=== PATIENT | female | born 1965 | race Caucasian/White ===

== ENCOUNTER 2017-06-21 10:31 | Inpatient (IN) | payer OTHER, MEDICARE ==
[~2017-06-21] VITALS: Ht 165.1 cm; Wt 98.0 kg
[~2017-06-21 10:31] MED LIST: BACLOFEN10 M1 PO; BACLOFEN20 MG PO; COZAAR50 M1 PO; CYMBALTA60 M1 PO; FLUTICASON0.05 MG/A2 NAS; FUROSEMIDE20 M1 PO; FUROSEMIDE20 MG PO; FUROSEMIDE40 MG PO; IBU800 MG PO; K-TAB ER20 MEQ PO; LASIX20 MG PO; NORVASC5 M1 PO; ONDANSETRON ODT4 MG PO; SENOKOT NATURA8.6 MG PO; TESSALON PERLE100 MG PO; TRAZODONE HCL100 M1 PO; TRAZODONE50 MG PO; VITAMIN C500 M3 PO; VITAMIN D2400 IU PO; ZANAFLEX4 M2 PO
--- NOTE | 2017-06-21 10:50 | ED GI/GU/ABDOMINAL COMPLAINT ---
See Addendum History of Present Illness General Chief Complaint: Nausea, Vomiting, Diarrhea Stated Complaint: BIBA NVD Source: old records, EMS, [employer] Exam Limitations: clinical condition Vital Signs & Intake/Output Vital Signs & Intake/Output Vital Signs Date Time Temp Pulse Resp B/P B/P Pulse O2 O2 Flow FiO2 Mean Ox Delivery Rate 06/21 1042 96.0 115 24 108/67 95 Allergies Coded Allergies: NO KNOWN ALLERGIES (10/21/11) Reconcile Medications Amlodipine Besylate (Norvasc) 5 MG TABLET 1 TAB PO DAILY HEART (Reported) Ascorbate Calcium (Vitamin C) 500 MG TABLET 1 TAB PO DAILY VITAMIN SUPPORT ( Reported) Baclofen 10 MG TABLET 1 TAB PO BID SPASM (Reported) Cholecalciferol (Vitamin D3) (Vitamin D3) 2,000 UNIT TABLET 1 TAB PO DAILY VITAMIN SUPPORT (Reported) Cranberry Extract (Cranberry) (Unknown Strength) CAPSULE (Unknown Dose) PO BID SUPPLEMENT (Reported) Duloxetine HCl (Cymbalta) 60 MG CAPSULE.DR 1 CAP PO DAILY DEPRESSION ( Reported) Furosemide 20 MG TABLET 1 TAB PO DAILY EDEMA (Reported) Losartan Potassium (Cozaar) 50 MG TABLET 1 TAB PO DAILY HEART (Reported) Multivitamin (Daily Multiple Vitamin) 1 EACH TABLET 1 TAB PO DAILY VITAMIN SUPPORT (Reported) Potassium Chloride (K-Tab ER) 20 MEQ TABLET.ER 1 TAB PO DAILY SUPPLEMENT ( Reported) Sennosides (Senokot) 8.6 MG TABLET 1 TAB PO QPM CONSTIPATION (Reported) Tizanidine HCl (Zanaflex) 4 MG CAPSULE 1 CAP PO BID SPASMS (Reported) Trazodone HCl 100 MG TABLET 1 TAB PO QPM SLEEP (Reported) Triage Note: PER RETIREMENT PT VOMITTED X 4 SINCE 529, UPON ARRIVAL CO MID ABD PAIN APPEARS WELL HYDRATED ABD SOFT NONDISTENDED + BS Triage Nurses Notes Reviewed? yes ? N Is pt currently ? No Onset: Abrupt Duration: hour(s): (FEW) Timing: multiple episodes today Location: unknown Activities at Onset: none Prior Abdominal Problems: similar symptoms No Modifying Factors: none HPI: This is a 51-year-old female with history of muscular dystrophy from snf who presents from the snf by Ryann Go chief complaint of multiple episodes of vomiting and diarrhea today. 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 She is in the process of being cleared for surgery with Dr. Fried. He shouldn't is normally able to communicate but currently not acting herself. (Ann Marie Arenas MD) Past History Travel History Traveled to [place] past 21 day No Medical History Any Pertinent Medical History? see below for history Neurological: MUSCULAR DYSTROPHY EENT: NONE Cardiovascular: NONE Respiratory: NONE Gastrointestinal: NONE Hepatic: NONE Renal: KIDNEY STONES Musculoskeletal: NONE Psychiatric: NONE Endocrine: NONE Blood Disorders: NONE Cancer(s): NONE FLAGMAN/Reproductive: NONE Other Medical Hx: MUSCULAR DYSTROPHY History of MRSA: No History of VRE: No History of CDIFF: No Surgical History Surgical History: non-contributory Psychosocial History Who do you live with [facility] What is your primary language Turkish Tobacco Use: Never used Family History Hx Contributory? No (Ann Marie Arenas MD) Review of Systems Review of Systems Constitutional: Denies: chills, fever. EENTM: Reports: no symptoms. Respiratory: Reports: no symptoms. Cardiovascular: Denies: chest pain. GI: Reports: diarrhea, nausea, vomiting. Genitourinary: Reports: no symptoms. Musculoskeletal: Reports: no symptoms. Skin: Reports: no symptoms. Neurological/Psychological: Reports: no symptoms. Hematologic/Endocrine: Denies: bleeding. Immunologic/Allergic: Reports: no symptoms. All Other Systems: Reviewed and Negative (Ann Marie Arenas MD) Physical Exam Physical Exam General Appearance: alert, awake, moderate distress, severe distress Head: atraumatic Eyes: Bilateral: PERRL. Ears, Nose, Throat, Mouth: DRY MUCUS MEMBRANES Neck: normal inspection, supple, full range of motion Respiratory: normal breath sounds, chest non-tender, no respiratory distress Cardiovascular: regular rate/rhythm Peripheral Pulses: 1+ radial (R), 1+ radial (L) Gastrointestinal: normal bowel sounds, soft, non-tender Extremities: COOL EXTREMITIES Neurologic/Psych: awake, alert Core Measures ACS in differential dx? Yes Sepsis Present: No Sepsis Focused Exam Completed? No (Ann Marie Arenas MD) Progress Differential Diagnosis: biliary colic, cholecystitis, EDDI, DEHYDRATION, GASTROENTERITIS Plan of Care: Orders Procedure Date/time Status LACTIC ACID 06/21 1401 Active LACTIC ACID 06/21 1400 Active BLOOD CULTURE 06/[address] ABD & PELVIS W IV CONTRAST 06/21 1326 Active CTA CHEST-PULMONARY EMBOLISM 06/21 1325 Active EKG 06/21 1257 Active Vargas, Insertion/Removal/Asses 06/21 1239 Active CULTURE,URINE 06/21 1239 Active Add-on Test (ER Only) 06/21 1237 Active Add-on Test (ER Only) 06/21 1236 Active Straight Cath 06/21 1158 Active THYROID STIMULATING HORMONE 06/21 1126 Complete TROPONIN LEVEL 06/21 1126 Complete MAGNESIUM 06/21 1126 Complete FREE T4 06/21 1126 Complete LACTIC ACID 06/21 1101 Complete LACTIC ACID 06/21 1100 Active PARTIAL THROMBOPLASTIN TIME 06/21 1044 Complete PROTHROMBIN TIME 06/21 1044 Complete EKG 06/21 1044 Active URINE 06/21 1043 Complete URINALYSIS 06/21 1043 Complete LIPASE 06/21 1043 Complete COMPREHENSIVE METABOLIC PANEL 06/21 1043 Complete CBC WITHOUT DIFFERENTIAL 06/21 1043 Complete AMYLASE 06/21 1043 Complete Laboratory Tests 06/21/17 1251: Urine Color YEL, Urine Clarity CLDY H, Urine pH 5.5, Ur Specific [place] >= 1.030, Urine Protein 30 H, Urine Ketones 40 H, Urine Nitrite POS H, Urine Bilirubin NEG, Urine Urobilinogen 0.2, Ur Leukocyte Esterase SMALL H, Ur Microscopic SEDIMENT EXAMINED, Urine RBC 1-3, Urine WBC 25-50 H, Ur Epithelial Cells FEW, Urine Bacteria MANY H, Urine Hemoglobin TRACE-INTACT, Urine Glucose NEG, Urine Test NEGATIVE 06/21/17 1126: Anion Gap 17 H, Estimated GFR > 60, BUN/Creatinine Ratio 30.0 H, Glucose 168 H, Calcium 9.4, Magnesium 1.9, Total Bilirubin 0.7, AST 86 H, ALT 213 H, Alkaline Phosphatase 113, Troponin I 0.52 *H, Total Protein 7.1, Albumin 4.1, Globulin 3.0, Albumin/Globulin Ratio 1.4, Amylase 79, Lipase 151, TSH 0.475, Free T4 1.49, PT 11.7, INR 1.07, APTT 34, CBC w Diff MAN DIFF ORDERED, RBC 5.29, MCV 88.5, MCH 30.3, MCHC 34.2, RDW 12.8, MPV 10.4, Gran % 93.3 H, Lymphocytes % 4.7 L, Monocytes % 1.7, Eosinophils % 0, Basophils % 0.3, Absolute Granulocytes 11.1 H, Absolute Lymphocytes 0.6 L, Absolute Monocytes 0.2, Absolute Eosinophils 0, Absolute Basophils 0, Platelet Estimate ADEQUATE, Normocytic RBCs VERIFIED, Normochromic RBCs VERIFIED 06/21/17 1101: Lactic Acid 1.7 Microbiology 06/21 1347 BLOOD: Blood Culture - ORD 06/21 1347 BLOOD: Blood Culture - ORD 06/21 1251 URINE ROUT: Urine Culture - RECD Diagnostic Imaging: Viewed by Me: Radiology Read, CT Scan, Ultrasound. Discussed w/RAD: Radiology Read, CT Scan, Ultrasound. Radiology Impression: PATIENT: FLORINA RANDALL PRESENT AGE: 51 PATIENT ACCOUNT NO: [id number] : 67 LOCATION: [facility] ORDERING PHYSICIAN: Ann Marie Arenas MD SERVICE DATE: 06/21/17 EXAM TYPE: US - US- LIMITED ABDOMEN EXAMINATION: US ABDOMEN LIMITED CLINICAL INFORMATION: Nausea and vomiting. Assess for cholecystitis. COMPARISON: 11/15/2016 TECHNIQUE: Real-time imaging of the right upper quadrant abdominal viscera. FINDINGS: PANCREAS: Not visualized LIVER: Normal. The liver demonstrates normal size, contour and echogenicity. No focal lesion or intrahepatic biliary duct dilatation. GALLBLADDER: Numerous small gallstones again noted. Patient is diffuse abdominal pain. The gallbladder is not distended. No pericholecystic fluid or definite gallbladder wall thickening. No specific sonographic Noel's sign. COMMON BILE DUCT: Normal in caliber measuring 8.3 cm in diameter. RIGHT KIDNEY: Normal. No hydronephrosis. No renal calculi or focal parenchymal lesions. The kidney measures 9.1 cm in maximum dimension. FREE FLUID: None. IMPRESSION: Numerous small gallstones. No definitive sonographic findings of acute cholecystitis. Correlate clinically. No choledocholithiasis. DICTATED BY: Franco Sosa MD DATE/ TIME DICTATED:06/21/171310 ZOOKEEPER:BERT DATE/TIME TRANSCRIBED: 06/21/171310 CONFIDENTIAL, DO NOT COPY WITHOUT APPROPRIATE AUTHORIZATION. < Electronically signed in Other Vendor System> SIGNED BY: Franco Sosa MD 1321 CXR Impression: PATIENT: FLORINA RANDALL PRESENT AGE: 51 PATIENT ACCOUNT NO: [id number] : 67 LOCATION: [facility] ORDERING PHYSICIAN: Ann Marie Arenas MD SERVICE DATE: 06/21/17-123 EXAM TYPE: RAD - XRY-PORTABLE CHEST XRAY EXAMINATION: XR PORTABLE CHEST CLINICAL INFORMATION: New onset rapid atrial fibrillation. COMPARISON: 05/13/2017 TECHNIQUE: Portable frontal view of the chest was obtained. FINDINGS: Evaluation is limited. Rotated positioning. Scoliosis present. Cardiac and mediastinal size is stable allowing for difference in technique. Redemonstrated is moderate elevation of the left hemidiaphragm. Low left lung volume. Left basilar hazy airspace opacity is more prominent as compared to previous. This may reflect atelectasis or infiltrate. Redemonstrated is bronchial wall thickening, which may reflect reactive airway disease or bronchitis. No focal consolidation of right lung. No effusion, edema or pneumothorax. IMPRESSION: Stable moderate elevation of the left hemidiaphragm. Hazy airspace opacity in the left lung base, which may reflect atelectasis or evolving infiltrate. There is bronchial wall thickening present which may reflect reactive small airway disease or bronchitis. DICTATED BY: Tommie Tracy MD DATE/TIME DICTATED:06/21/171350 ZOOKEEPER:BERT DATE/TIME TRANSCRIBED:06/21/171350 CONFIDENTIAL, DO NOT COPY WITHOUT APPROPRIATE AUTHORIZATION. <Electronically signed in Other Vendor System> SIGNED BY: Tommie Tracy MD 06/21/17 1416 Initial ED EKG: AFIB (RVR) Hand-Off Endorsed To: Ketan Torres DO Endorsed Time: 1525 Pending: CT (Ann Marie Arenas MD) Departure Departure Disposition: STILL A PATIENT Condition: Stable Clinical Impression Primary Impression: Nausea and vomiting Secondary Impressions: Elevated troponin, Paroxysmal A-fib Referrals: Anitha Gage MD (PCP/Family) Departure Forms: Customer Survey General Discharge Information (Ann Marie Arenas MD) Departure Comments 06/21/17 3:42 PM The patient was signed out to me by Dr. Arenas. She is pending CTA results. (Ketan Torres DO) Critical Care Note Critical Care Note Critical Care Time: 30-74 min (Ann Marie Arenas MD)
[2017-06-21 11:37] LABS: ABSOLUTE BASOPHIL COUNT 0 /CUMM (0.0-0.2); ABSOLUTE EOSINOPHIL COUNT 0 /CUMM (0.0-0.7); ABSOLUTE GRANULOCYTE CT 11.1 /CUMM (1.4-6.5); ABSOLUTE LYMPH COUNT 0.6 /CUMM (1.2-3.4); ABSOLUTE MONOCYTE COUNT 0.2 /CUMM (0.10-0.60); BASOPHIL % 0.3 % (0.0-2.0); EOSINOPHIL % 0 % (0-5); GRANULOCYTE % 93.3 % (42.2-75.2); HEMATOCRIT 46.8 % (37-47); MEAN CORPUSCULAR HGB 30.3 PG (27.0-31.0); MEAN CORPUSCULAR HGB CONC 34.2 G/DL (33.0-37.0); MEAN CORPUSCULAR VOLUME 88.5 FL (81.0-99.0); MEAN PLATELET VOLUME 10.4 FL (7.4-10.4); PLATELET COUNT 205 /CUMM (130-400); RBC DISTRIBUTION WIDTH 12.8 % (11.5-14.5); RED BLOOD CELL CT 5.29 /CUMM (4.20-5.40); WHITE BLOOD CELL COUNT 11.9 /CUMM (4.8-10.8)
[2017-06-21 11:53] LABS: PT 11.7 SEC (9.4-12.5); PTT 34 SEC (25-37)
[2017-06-21] MEDS ORDERED: CRANBERRY200 MG PO (12:44)
[2017-06-21] MEDS ORDERED: DAILY MULTIPLE1 EACH PO (12:46)
[2017-06-21] MEDS ORDERED: SENOKOT8.6 M2 PO (12:46)
[2017-06-21] MEDS ORDERED: VITAMIN D32000 UNI1 PO (12:48)
[2017-06-21] MEDS ORDERED: VITAMIN C500 M6 PO (12:48)
--- NOTE | 2017-06-21 13:21 | ULTRASOUND REPORT ---
EXAMINATION: US ABDOMEN LIMITED CLINICAL INFORMATION: Nausea and vomiting. Assess for cholecystitis. COMPARISON: 11/15/2016 TECHNIQUE: Real-time imaging of the right upper quadrant abdominal viscera. FINDINGS: PANCREAS: Not visualized LIVER: Normal. The liver demonstrates normal size, contour and echogenicity. No focal lesion or intrahepatic biliary duct dilatation. GALLBLADDER: Numerous small gallstones again noted. Patient is diffuse abdominal pain. The gallbladder is not distended. No pericholecystic fluid or definite gallbladder wall thickening. No specific sonographic Noel's sign. COMMON BILE DUCT: Normal in caliber measuring 8.3 cm in diameter. RIGHT KIDNEY: Normal. No hydronephrosis. No renal calculi or focal parenchymal lesions. The kidney measures 9.1 cm in maximum dimension. FREE FLUID: None. IMPRESSION: Numerous small gallstones. No definitive sonographic findings of acute cholecystitis. Correlate clinically. No choledocholithiasis.
--- NOTE | 2017-06-21 14:16 | RADIOLOGY REPORT ---
EXAMINATION: XR PORTABLE CHEST CLINICAL INFORMATION: New onset rapid atrial fibrillation. COMPARISON: 05/13/2017 TECHNIQUE: Portable frontal view of the chest was obtained. FINDINGS: Evaluation is limited. Rotated positioning. Scoliosis present. Cardiac and mediastinal size is stable allowing for difference in technique. Redemonstrated is moderate elevation of the left hemidiaphragm. Low left lung volume. Left basilar hazy airspace opacity is more prominent as compared to previous. This may reflect atelectasis or infiltrate. Redemonstrated is bronchial wall thickening, which may reflect reactive airway disease or bronchitis. No focal consolidation of right lung. No effusion, edema or pneumothorax. IMPRESSION: Stable moderate elevation of the left hemidiaphragm. Hazy airspace opacity in the left lung base, which may reflect atelectasis or evolving infiltrate. There is bronchial wall thickening present which may reflect reactive small airway disease or bronchitis.
--- NOTE | 2017-06-21 15:45 | CT SCAN REPORT ---
EXAMINATION: CT ANGIOGRAM OF THE CHEST WITH AND WITHOUT CONTRAST (CT PULMONARY ANGIOGRAM FOR PE). CT OF THE ABDOMEN AND PELVIS. CLINICAL INFORMATION: 51-year-old female patient with rapid atrial fibrillation and vomiting. Presumptive diagnosis obstruction. COMPARISON: CT of the abdomen and pelvis on 02/25/2014. (Left lower lobe consolidation. Gastric distention. Large rectal stool burden). TECHNIQUE: Prior to contrast administration, noncontrast localization images were obtained. Subsequently, multidetector volumetric imaging was performed from the thoracic inlet to below the diaphragms following the administration of 93 mL Optiray 320 intravenous contrast. No contrast reaction reported Sagittal, coronal, and MIP oblique sagittal reformatted images were obtained on the CT workstation, uploaded to PACS, and reviewed. Subsequently, multidetector volumetric imaging was performed from the diaphragm to the pubic symphysis. 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 Significant gaseous distention of the stomach is the same as was seen in February 2014. Air distally is contained within nondilated loops of bowel. There is no sign of stool impaction. There is chronic elevation of the right hemidiaphragm and bilateral hip arthritis. The mediastinal structures are shifted to the right due to the elevation of diaphragm and gaseous distention of the stomach. QUALITY OF STUDY/CONTRAST BOLUS: Less than optimal. The patient could not raise her arms and therefore there a significant beam hardening artifacts. PULMONARY ARTERIES: No central or segmental pulmonary emboli. THORACIC AORTA: The supravalvular diameter of the thoracic aorta measures 3.5 cm. LUNG: The left lower lobe consolidation is chronic due to the chronically elevated left hemidiaphragm and subsegmental atelectasis. Series 3, image 29. The remaining portions of both lungs show patchy areas of groundglass opacity that could be due to small airways disease and air trapping. No change. PLEURA: No pleural effusion or pneumothorax. MEDIASTINUM: The heart remains enlarged. No pericardial effusion. No hilar or mediastinal lymphadenopathy. No evidence of septal bowing or right heart strain. CHEST WALL/AXILLA: No axillary or internal mammary lymphadenopathy. LIVER, GALLBLADDER, AND BILIARY TREE: The liver is normal in size, shape, and attenuation. No focal hepatic lesion or biliary ductal dilatation is present. Periportal" tracking" is secondary to overhydration. A small amount of fluid is seen in the pericholecystic space. No opaque stones are seen. PANCREAS: Normal; no mass or surrounding fluid. SPLEEN: Normal size. No focal lesion. ADRENAL GLANDS: Normal; no mass. KIDNEYS AND URETERS: The kidneys are normal in size, shape, and attenuation. No hydronephrosis, hydroureter, or calculi. Tiny cortical cyst in the right kidney. GASTROINTESTINAL TRACT: As before, the stomach is grossly distended by air and some fluid. The rest of the gastrointestinal tract is unremarkable except for some moderate stool burden in the rectosigmoid colon. There is no pericecal inflammation. No free fluid. ABDOMINAL WALL: No hernia seen. LYMPHOVASCULAR STRUCTURES: No lymphadenopathy. The aorta is normal in caliber. BLADDER: Empty via an indwelling Vargas catheter. PELVIC VISCERA: The fibroid arising the posterior aspect of the uterine fundus measures 4.1 cm in width. The ovaries are normal. OSSEOUS STRUCTURES: Severe scoliosis. IMPRESSION: 1. CTA is virtually nondiagnostic. No thromboembolism in the main pulmonary artery and left and right branches. 2. Gastric distention. (Similar to February 2014). Otherwise no evidence of intestinal obstruction. VTE: negative with qualification.
--- NOTE | 2017-06-21 18:54 | History & Physical ---
Benji ARZOLA,Armen 06/21/17 1736: General Information and HPI History of Present Illness: 51 year old woman with past medical history of traumatic brain injury with paraparesis, musculodystrophy, nephrolithiasis, gallstone pancreatitis, and hypertension brought in by ambulance from her extended care facility for evaluation of nausea, vomiting, and diarrhea. Patient was last admitted to [facility] in february of 2014 for evaluation of similar symptoms where it was determined that she had gallstone pancreatitis which was kept NPO, treated with IV fluids, and assessed by GI. She was found to have EKG changes and was monitored on telemetry and evaluated by cardiology. Echocardiogram was unremarkable. Patient answers questions appropriately and follows commands, but has obvious cognitive impairment. She states that she feels well and denies any complaints. She denies any further abdominal discomfort, nausea, or vomiting. Review of Systems Specifically she denies any headache, fever, chills, chest pain, palpitations, shortness of breath, cough. Allergies/Medications Allergies: Coded Allergies: NO KNOWN ALLERGIES (10/21/11) Home Med list Amlodipine Besylate (Norvasc) 5 MG TABLET 1 TAB PO DAILY HEART (Reported) Ascorbate Calcium (Vitamin C) 500 MG TABLET 1 TAB PO DAILY VITAMIN SUPPORT ( Reported) Baclofen 10 MG TABLET 1 TAB PO BID SPASM (Reported) Cholecalciferol (Vitamin D3) (Vitamin D3) 2,000 UNIT TABLET 1 TAB PO DAILY VITAMIN SUPPORT (Reported) Cranberry Extract (Cranberry) (Unknown Strength) CAPSULE (Unknown Dose) PO BID SUPPLEMENT (Reported) Duloxetine HCl (Cymbalta) 60 MG CAPSULE.DR 1 CAP PO DAILY DEPRESSION ( Reported) Furosemide 20 MG TABLET 1 TAB PO DAILY EDEMA (Reported) Losartan Potassium (Cozaar) 50 MG TABLET 1 TAB PO DAILY HEART (Reported) Multivitamin (Daily Multiple Vitamin) 1 EACH TABLET 1 TAB PO DAILY VITAMIN SUPPORT (Reported) Potassium Chloride (K-Tab ER) 20 MEQ TABLET.ER 1 TAB PO DAILY SUPPLEMENT ( Reported) Sennosides (Senokot) 8.6 MG TABLET 1 TAB PO QPM CONSTIPATION (Reported) Tizanidine HCl (Zanaflex) 4 MG CAPSULE 1 CAP PO BID SPASMS (Reported) Trazodone HCl 100 MG TABLET 1 TAB PO QPM SLEEP (Reported) Past History Travel History Traveled to [place] past 21 day No Medical History Neurological: MUSCULAR DYSTROPHY EENT: NONE Cardiovascular: NONE Respiratory: NONE Gastrointestinal: NONE Hepatic: NONE Renal: KIDNEY STONES Musculoskeletal: NONE Psychiatric: NONE Endocrine: NONE Blood Disorders: NONE Cancer(s): NONE 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 Exam & Diagnostic Data Last 24 Hrs of Vital Signs/I&O Vital Signs Date Time Temp Pulse Resp B/P B/P Pulse O2 O2 Flow FiO2 Mean Ox Delivery Rate 06/21 1757 97.6 78 18 122/74 98 Room Air 06/21 1420 97.0 82 22 111/75 97 06/21 1042 96.0 115 24 108/67 95 Physical Exam General Appearance Alert, Oriented X3, Cooperative, No Acute Distress Skin No Rashes, No Breakdown, No Significant Lesion Skin Temp/Moisture Exam: Warm/Dry Sepsis Skin Exam (color): Normal for Ethnicity HEENT Atraumatic, PERRLA, EOMI, Mucous Membr. moist/pink Neck Supple, No JVD, No LAD Cardiovascular Regular Rate, Normal S1, Normal S2, No Murmurs Lungs Clear to Auscultation, diminished bibasilar airflow Abdomen Normal Bowel Sounds, Soft, No Tenderness, No Hepatospenomegaly, No Masses Neurological various contractures with dysarthic speech, spontaneous movement of all four extremities Extremities No Clubbing, No Cyanosis, No Edema, Normal Pulses, No Tenderness/ Swelling Vascular Normal Pulses, Pulses Symmetrical Sepsis Peripheral Pulse Location: Dorsalis Pedis Sepsis Peripheral Pulse Exam: Normal Sepsis Cap Refill Exam: <2 Sec Last 24 Hrs of Labs/Aurelio: Laboratory Tests 06/21/175: Lactic Acid Pending, Troponin I Pending 06/21/17 1751: Lactic Acid 2.8 H 06/21/17 1251: Urine Color YEL, Urine Clarity CLDY H, Urine pH 5.5, Ur Specific [place] >= 1.030, Urine Protein 30 H, Urine Ketones 40 H, Urine Nitrite POS H, Urine Bilirubin NEG, Urine Urobilinogen 0.2, Ur Leukocyte Esterase SMALL H, Ur Microscopic SEDIMENT EXAMINED, Urine RBC 1-3, Urine WBC 25-50 H, Ur Epithelial Cells FEW, Urine Bacteria MANY H, Urine Hemoglobin TRACE-INTACT, Urine Glucose NEG, Urine Test NEGATIVE 06/21/17 1126: Anion Gap 17 H, Estimated GFR > 60, BUN/Creatinine Ratio 30.0 H, Glucose 168 H, Calcium 9.4, Magnesium 1.9, Total Bilirubin 0.7, AST 86 H, ALT 213 H, Alkaline Phosphatase 113, Troponin I 0.52 *H, Total Protein 7.1, Albumin 4.1, Globulin 3.0, Albumin/Globulin Ratio 1.4, Amylase 79, Lipase 151, TSH 0.475, Free T4 1.49, PT 11.7, INR 1.07, APTT 34, CBC w Diff MAN DIFF ORDERED, RBC 5.29, MCV 88.5, MCH 30.3, MCHC 34.2, RDW 12.8, MPV 10.4, Gran % 93.3 H, Lymphocytes % 4.7 L, Monocytes % 1.7, Eosinophils % 0, Basophils % 0.3, Absolute Granulocytes 11.1 H, Absolute Lymphocytes 0.6 L, Absolute Monocytes 0.2, Absolute Eosinophils 0, Absolute Basophils 0, Platelet Estimate ADEQUATE, Normocytic RBCs VERIFIED, Normochromic RBCs VERIFIED 06/21/17 1101: Lactic Acid 1.7 Microbiology 06/21 1944 UPPER RESP: Surveillance Culture - RECD 06/21 1944 GI: Surveillance Culture - RECD 06/21 1927 BLOOD: Blood Culture - RECD 06/21 1347 BLOOD: Blood Culture - ORD 06/21 1251 URINE ROUT: Urine Culture - RECD Assessment/Plan Assessment: 51 year old woman with multiple medical problems significant for TBI, muscular dystrophy, hypertension, and previous gallstone pancreatitis seen for evaluation of nausea, vomiting, and diarrhea. ED Course -Vitals: Temp 96.0-97.6, HR 78-115, RR 18-24, SBP 108-122, DBP 67-74, O2 95-98% on room air -CBC: WBC 11.9, hemoglobin 16.0, hematocrit 46.8, platelet 205 -BMP: Sodium 141, potassium 4.0, chloride 102, CO2 21, urea 15, creatinine 0.5, anion gap 17, glucose 168 -LFT: AST 86, ALT 213, ALP 113 -Miscellaneous: Amylase 79, lipase 151, TSH 0.475, T4 1 0.49, INR 1.04, troponin I 0.52, lactic acid 1.7, magnesium 1.9 -Urinalysis: Positive nitrates/leukocyte esterase, WBC 25-50, many bacteria -EKG 1228: Atrial fibrillation with rapid ventricular response, HR 161 -EKG 1306: NSR with old T-wave inversions and inferior and precordial leads -Telemetry: Atrial fibrillation with rapid ventricular response with 6 second NSVT at 1231:40 and spontaneous conversion to normal sinus rhythm -Echocardiogram 04/27/13: LVEF > 60% without regional wall motion abnormalities -CTA chest/abdomen/pelvis: No thromboembolism, old gastric distention -CXR: Hazy airspace opacity in left lung base -Abdominal ultrasound: Numerous small gallstones with no definitive sonographic evidence of acute cholecystitis Given patient's history of gallstone pancreatitis and imaging demonstrating numerous gallstones patient was evaluated for possible recurrence of this problem however given her lack of abdominal pain and unremarkable amylase/lipase with a negative ultrasound acute cholecystitis/pancreatitis are unlikely. Patient's nausea, vomiting, and diarrhea probably represent that of a viral gastroenteritis which will be treated with supportive management. Patient does have a postive UA without any symptoms which also may be the cause of her symptoms. Patient's new onset atrial fibrillation with rapid ventricular response spontaneously terminating with NSVT may be due to the acute illness mentioned above. Her thyroid function tests are otherwise normal and she remains hemodynamically stable now in normal sinus rhythm. Serial troponin/EKG and echocardiogram are to be obtained. Patient is started on metoprolol tartrate 12.5 mg twice daily and held off her amlodipine/losartan. Her CHADsVASc score is 2 for which patient should be considered for anticoagulation; however patient has guaiac positive stool and will be started on aspirin at this time. Problem list -Nausea, vomiting, diarrhea; probable viral gastroenterities -New Onset Atrial Fibrillation with Rapid Ventricular Response, now in NSR -Urinary tract infection -History of Muscular Dystrophy and traumatic brain injury with paraparesis -History of Gallstone pancreatitis and nephrolothiasis -Hypertension Plan: -ICU monitoring overnight -Telemetry -Guaic all stools -NS @ 75mL/hr -Ceftriaxone 1 g IV Daily -Start Aspirin 81 mg PO Daily -Start Metoprolol 12.5 mg PO BID -Hold losartan / amlodipine -Continue home meds: supplements, cymbalta, lasix, baclofen, tizanidine, trazodone, senokot -Cardiology consult for new onset atrial fibrillation -Follow up cultures & sensitivites -Type & cross, monitor H&H -Trend latic acid until normal -Serial troponin / EKG -Obtain echocardiogram -Swallow evaluation in AM -Pain control with acetaminophen -NPO -DVT PPx with -FULL CODE As Ranked By This Provider Problem List: 1. Afib Core Measures/Misc (12/19) Acute Coronary Syndrome ACS Diagnosis: No Congestive Heart Failure Congestive Heart Failure Diagnosis No Cerebrovascular Accident CVA/TIA Diagnosis: No VTE (View Protocol) VTE Risk Factors Age>40 No Mechanical VTE Prophylaxis d/t N/A MechProphylax Ordered No VTE Pharm Prophylaxis d/t NA PharmProphylax ordered Sepsis (View protocol) Sepsis Present: No Samuel Fitzgerald MD 06/21/17 2306: Attending MD Review Statement Attending Statement Attending MD Statement: examined this patient, discuss w/resident/PA/SYSTEM SOFTWARE DEVELOPER, agreed w/resident/PA/SYSTEM SOFTWARE DEVELOPER, reviewed EMR data (avail) Attending Assessment/Plan: 51F PMH traumatic brain injury with paraparesis, musculodystrophy, nephrolithiasis, gallstone pancreatitis, and hypertension presenting with 1 day of nausea, intractable vomiting, and diarrhea with 4-5 loose stools. Patient is poor historian due to her mental condition, however she endorses no complaints at this time Per family and W10 she is denying chest pain, palpitations, SOB. She does report abdominal cramping, which is consistent with prior episodes of cholelithiasis. Was found to be in new onset atrial fibrillation with RVR in ED , and had a 6 beat run of ventricular tachycardia. Initial EKG shows rapid a- fib, spontaneously converted to NSR, repeat EKG unchanged from old, troponin 0.52, electrolytes normal, CTA chest negative, abdominal ultrasound normal. 1. New onset rapid atrial fibrillation with RVR 2. Elevated troponin 3. NSVT 4. Acute gastroenteritis 5. Lactic acidosis Plan - Admit to ICU - IV hydration - Trend lactate to normal - Serial EKG and troponin - Per cardiology, no heparin drip at this time, only ASA and Metoprolol. Should patient revert to a-fib, would start heparin drip - Maintain K>4 and Mg>2 - Echocardiogram - Cardiology consult - Continue home medications - DVT PPx
--- NOTE | 2017-06-21 23:09 | Admission Certification ---
Admission Certification Certification Statement - As attending physician, I certify that at the time of - admission, based on clinical presentation, severity of - symptoms, need for further diagnostic testing and - therapeutic interventions, and risk of adverse outcomes - without in-hospital treatment, in my clinical assessment, - this patient requires an acute hospital stay for a minimum - of two nights or longer. I have also considered psychsocial - factors such as support system, advanced age, financial - issues, cognitive issues, and failed out-patient treatments, - past re-admission history, safety of patient, and lack of - compliance as applicable. Specific rationale supporting this admission is: New onset atrial fibrillation with elevated troponin
[2017-06-22] VITALS: BP 86/63
[2017-06-22 04:17] LABS: ABSOLUTE BASOPHIL COUNT 0 /CUMM (0.0-0.2); ABSOLUTE EOSINOPHIL COUNT 0.1 /CUMM (0.0-0.7); ABSOLUTE GRANULOCYTE CT 4.9 /CUMM (1.4-6.5); ABSOLUTE LYMPH COUNT 2.4 /CUMM (1.2-3.4); ABSOLUTE MONOCYTE COUNT 0.8 /CUMM (0.10-0.60); BASOPHIL % 0.4 % (0.0-2.0); EOSINOPHIL % 0.8 % (0-5); GRANULOCYTE % 59.8 % (42.2-75.2); HEMATOCRIT 42.7 % (37-47); MEAN CORPUSCULAR HGB 29.8 PG (27.0-31.0); MEAN CORPUSCULAR HGB CONC 32.9 G/DL (33.0-37.0); MEAN CORPUSCULAR VOLUME 90.5 FL (81.0-99.0); MEAN PLATELET VOLUME 10.8 FL (7.4-10.4); PLATELET COUNT 185 /CUMM (130-400); RBC DISTRIBUTION WIDTH 13.6 % (11.5-14.5); RED BLOOD CELL CT 4.72 /CUMM (4.20-5.40); WHITE BLOOD CELL COUNT 8.2 /CUMM (4.8-10.8)
--- NOTE | 2017-06-22 07:23 | Cons- CRCU ---
General Information and HPI Allergies/Medications Allergies: Coded Allergies: NO KNOWN ALLERGIES (10/21/11) Home Med List: Amlodipine Besylate (Norvasc) 5 MG TABLET 1 TAB PO DAILY HEART (Reported) Ascorbate Calcium (Vitamin C) 500 MG TABLET 1 TAB PO DAILY VITAMIN SUPPORT ( Reported) Baclofen 10 MG TABLET 1 TAB PO BID SPASM (Reported) Cholecalciferol (Vitamin D3) (Vitamin D3) 2,000 UNIT TABLET 1 TAB PO DAILY VITAMIN SUPPORT (Reported) Cranberry Extract (Cranberry) (Unknown Strength) CAPSULE (Unknown Dose) PO BID SUPPLEMENT (Reported) Duloxetine HCl (Cymbalta) 60 MG CAPSULE.DR 1 CAP PO DAILY DEPRESSION ( Reported) Furosemide 20 MG TABLET 1 TAB PO DAILY EDEMA (Reported) Losartan Potassium (Cozaar) 50 MG TABLET 1 TAB PO DAILY HEART (Reported) Multivitamin (Daily Multiple Vitamin) 1 EACH TABLET 1 TAB PO DAILY VITAMIN SUPPORT (Reported) Potassium Chloride (K-Tab ER) 20 MEQ TABLET.ER 1 TAB PO DAILY SUPPLEMENT ( Reported) Sennosides (Senokot) 8.6 MG TABLET 1 TAB PO QPM CONSTIPATION (Reported) Tizanidine HCl (Zanaflex) 4 MG CAPSULE 1 CAP PO BID SPASMS (Reported) Trazodone HCl 100 MG TABLET 1 TAB PO QPM SLEEP (Reported) Past History Travel History Traveled to [place] past 21 day No Medical History Neurological: MUSCULAR DYSTROPHY EENT: NONE Cardiovascular: NONE Respiratory: NONE Gastrointestinal: NONE Hepatic: NONE Renal: KIDNEY STONES Musculoskeletal: NONE Psychiatric: NONE Endocrine: NONE Blood Disorders: NONE Cancer(s): NONE 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 Assisted Services at Home: Nursing Smoking Status: Never Smoked Assessment/Plan CRCU Consult Acknowledgment - Thank you for your consult request. 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
[2017-06-22 08:00] VITALS: BP 120/80
--- NOTE | 2017-06-22 12:21 | PN- Resident CRCU ---
Rodrigo ARZOLA,Vern 06/22/17 1221: Subjective HPI/CRCU Issues: Patient is here for closer moritoring of new onset afib and NSVTs. I followed up and examined the patient today. She is resting comfortably in bed , not in distress, no active issues going on. Of note, patient lives in a [facility], and is able to understand and reply to simple sentences/instructions. I also spoke to the protective services case worker/nurse of the patient from [facility] over phone , and noted her baseline, past medical history, her current medications, and history of present illness. 24 Hour Events: Patient had random PVCs overnight, BP at midnight went down to 86/63. She had received 12.g mg of Metoprolol last night. No home BP meds in the hospital. Objective Vital Signs & I&O Last 8 Hrs of Vitals and I&O: Vital Signs Date Time Temp Pulse Resp B/P B/P Pulse O2 O2 Flow FiO2 Mean Ox Delivery Rate 06/22 1053 62 120/71 06/22 0800 Room Air 06/22 0800 97.7 60 18 120/80 94 Room Air 06/22 0400 99 Room Air 06/22 0000 100 Room Air 06/22 0000 97.5 62 20 86/63 100 Room Air 06/21 2147 99.5 75 20 180/79 03 2000 95 Room Air 06/21 1757 97.6 78 18 122/74 98 Room Air 06/21 1420 97.0 82 22 111/75 97 Exam General Appearance: alert, awake, comfortable, obese, communicative Other Physical Findings: Skin No Rashes, No Breakdown, No Significant Lesion Skin Temp/Moisture Exam: Warm/Dry HEENT Atraumatic, PERRLA, EOMI, Mucous Membr. moist/pink Neck Supple, No JVD, No LAD Cardiovascular Regular Rate, Normal S1, Normal S2, No Murmurs Lungs Clear to Auscultation, diminished bibasilar airflow Abdomen Normal Bowel Sounds, Soft, No Tenderness Neurological various contractures with dysarthic speech, spontaneous movement of all four extremities, can easily comprehend simple sentences/instructions, gait not examined Extremities No Clubbing, No Cyanosis, No Edema, Normal Pulses, No Tenderness/ Swelling Vascular Normal Pulses, Pulses Symmetrical Vargas Site: urethra Date In: 06/21/17 Still Needed? Yes Current Medications: Current Medications Sig/Nya Start time Last Medication Dose Route Stop Time Status Admin Acetaminophen 1,000 MG Q6P PRN 06/21 1900 AC IV Ascorbic Acid 500 MG DAILY 06/22 1000 AC 06/22 PO 0943 Aspirin 81 MG DAILY 06/21 1929 AC 06/22 PO 0943 Baclofen 10 MG BID 06/210 AC 06/22 PO 0943 Ceftriaxone Sodium 1,000 MG Q24H 06/22 220 AC IV Ceftriaxone Sodium 1,000 MG DAILY 06/21 1916 DC 06/21 IV 2144 Cholecalciferol 2,000 IU DAILY 06/22 1000 AC 06/22 PO 0943 Duloxetine HCl 60 MG DAILY 06/22 1000 AC 06/22 PO 0943 Furosemide 20 MG DAILY 06/22 1000 AC 06/22 PO 0943 Heparin Sodium 5,000 UNIT Q8 06/21 2199 AC 06/22 (Porcine) SC 0531 Metoprolol Tartrate 12.5 MG BID 06/21 2199 AC 06/22 PO 1053 Multivitamins 1 TAB DAILY 06/22 1000 AC 06/22 Therapeutic PO 0943 Phosphate 250 MG PC AND AT BEDTIME 06/22 0900 AC 06/22 PO 06/22 2300 0935 Potassium Chloride 20 MEQ DAILY 06/22 1000 AC 06/22 PO 0935 Senna 187 MG AT BEDTIME 06/21 2199 AC 06/21 PO 2144 Sodium Chloride 500 ML BOLUS ONE 06/22 0030 DC 06/22 IV 06/22 0129 0031 Sodium Chloride 1,000 ML Q13H 06/21 1930 AC 06/22 IV 0809 Sodium Chloride 1,000 ML BOLUS ONE 06/21 1245 DC 06/21 IV 06/21 1344 1310 Tizanidine HCl 4 MG 1200,0 06/22 1200 AC 06/22 PO 1217 Tizanidine HCl 4 MG 0000 PRN 06/22 1045 AC PO Tizanidine HCl 4 MG BID 06/21 2199 DC 06/22 PO 0943 Trazodone HCl 100 MG QPM 06/21 2199 AC 06/21 PO 2144 Impression/Plan Impression/Problem List Impression: 51-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 She was last seen by her nurse on 06/20/2017 without any issues. She specifically denies any chest pain, palpitation, dizziness, shortness of breath, abdominal pain. She is currently admitted in the ICU for management of following issues: #New onset atrial fibrillation with rapid ventricular response, currently rate controlled The patient is already in sinus rhythm right now with metoprolol 12.5 mg twice a day, but will need to telemetry monitoring as her blood pressure has been labile. * Patient is to be transferred to telemetry unit, as she does NOT require ICU level of care currently * Cardiology consultation appreciated * Echocardiogram pending #Urinary tract infection * Continue IV ceftriaxone * Awaiting final urine culture reports to narrow antibiotics * Maintain hydration #Muscle spasms, chronic * Continue home medications of baclofen and tizanidine as prescribed (per home med timings) #Patient is supposed to go for repeat swallow evaluation tomorrow as he feels it today, with a possible modified barium swallow evaluation. #Diet: Puree /Honey consistency Regular diet #DVT ppx: SQ Heparin #Code status: Full code Problem List: 1. Afib 2. UTI (urinary tract infection) Pain Ratin Tomorrow's Labs & Rationales: CBC, BEP, Mg Plan DVT/Prophylaxis: pharmacological Sebas ARZOLA,[facility] 06/22/17 1520: Attending MD Review Statement Attending Sign Off Attending Cosign Statement: I have: examined this patient, reviewed [facility] EMR data, personally reviewd images, discussd w/resident/PA/MARKETING RECRUITER, discussed mgmt plan w/pt, agreed w/resident/ PA/MARKETING RECRUITER, amended to note. Other Findings: Patient seen and examined, she offers no complaints. She is a little slow to respond. She is now in sinus rhythm with rate controlled. Vital Signs Date Time Temp Pulse Resp B/P B/P Pulse O2 O2 Flow FiO2 Mean Ox Delivery Rate 06/22 1200 Nasal 2.0L Cannula 06/22 1053 62 120/71 06/22 0800 Room Air 06/22 0800 97.7 60 18 120/80 94 Room Air 06/22 0400 99 Room Air 06/22 0000 100 Room Air 06/22 0000 97.5 62 20 86/63 100 Room Air 06/21 2147 99.5 75 20 180/79 06/21 2000 95 Room Air 06/21 1757 97.6 78 18 122/74 98 Room Air on exam; awake, nad. cv; s1, s2, rrr resp; clear abd; soft, nt, bs+ ext; no edema. Laboratory Tests 06/22 06/22 06/22 0340 0340 0000 Chemistry Sodium (137 - 145 mmol/L) 144 Potassium (3.5 - 5.1 mmol/L) 3.8 Chloride (98 - 107 mmol/L) 109 H Carbon Dioxide (22 - 30 mmol/L) 25 Anion Gap (5 - 16) 10 BUN (7 - 17 mg/dL) 12 Creatinine (0.5 - 1.0 mg/dL) 0.6 Estimated GFR (>60 ml/min) > 60 Glucose (65 - 99 mg/dL) 92 Lactic Acid (0.7 - 2.1 mmol/L) 1.7 Calcium (8.4 - 10.2 mg/dL) 8.8 Phosphorus (2.5 - 4.5 mg/dL) 2.7 Magnesium (1.6 - 2.3 mg/dL) 1.9 Total Bilirubin (0.2 - 1.3 mg/dL) 0.8 AST (14 - 36 U/L) 55 H ALT (9 - 52 U/L) 141 H Troponin I (< 0.11 ng/ml) 0.79 *H Albumin (3.5 - 5.0 g/dL) 3.2 L Hematology CBC w Diff NO MAN DIFF REQ WBC (4.8 - 10.8 /CUMM) 8.2 RBC (4.20 - 5.40 /CUMM) 4.72 Hgb (12.0 - 16.0 G/DL) 14.1 Hct (37 - 47 %) 42.7 MCV (81.0 - 99.0 FL) 90.5 MCH (27.0 - 31.0 PG) 29.8 MCHC (33.0 - 37.0 G/DL) 32.9 L RDW (11.5 - 14.5 %) 13.6 Plt Count (130 - 400 /CUMM) 185 MPV (7.4 - 10.4 FL) 10.8 H Gran % (42.2 - 75.2 %) 59.8 Lymphocytes % (20.5 - 51.1 %) 29.5 Monocytes % (1.7 - 9.3 %) 9.5 H Eosinophils % (0 - 5 %) 0.8 Basophils % (0.0 - 2.0 %) 0.4 Absolute Granulocytes (1.4 - 6.5 /CUMM) 4.9 Absolute Lymphocytes (1.2 - 3.4 /CUMM) 2.4 Absolute Monocytes (0.10 - 0.60 /CUMM) 0.8 H Absolute Eosinophils (0.0 - 0.7 /CUMM) 0.1 Absolute Basophils (0.0 - 0.2 /CUMM) 0 06/21 1751 Chemistry Lactic Acid (0.7 - 2.1 mmol/L) 2.7 H 2.8 H Troponin I (< 0.11 ng/ml) 1.34 *H A/P; 51F PMH traumatic brain injury with paraparesis, musculodystrophy, nephrolithiasis, gallstone pancreatitis, and hypertension admitted with acute gastroenteritis, new onset atrial fibrillation with rapid ventricle response, high troponin likely secondary to demand ischemia. Patient now converted to sinus rhythm with rate controlled. Has been followed by cardiology. Also likely has a UTI. Patient was initially started on full dose anticoagulation which has been stopped. Currently on beta rai. Blood pressure was slightly low, she will receive IV fluids but if blood pressure does not, then need to discuss with cardiology about the dose of beta rai. Continue ceftriaxone and follow-up on the urine cultures. Once her blood pressure stabilizes, she can be downgraded to telemetry. She is on heparin subcutaneous for DVT prophylaxis.
--- NOTE | 2017-06-22 12:49 | Cons- Cardiology ---
General Information and HPI Consulting Request Date of Consult: 06/22/17 Requested By: Samuel Fitzgerald MD Reason for Consult: Elevated troponin Primary souvenir assembler: Dr. Carballo Source of Information: patient, old records History of Present Illness: This is a 51-year-old female with a past medical history of Friedreich's ataxia, hypertension, and bicuspid aortic valve who presents from her extended care facility with a chief complaint of one day of moderate intensity nausea, diarrhea, and vomiting; this was not associated with any significant dyspnea or chest pain; denied any palpitations, syncope, headache, or slurring of speech. Did report a subjective fever. Was noted to be in atrial fibrillation but subsequently converted to sinus rhythm. Was also noted to have a short wide complex run on telemetry. Allergies/Medications Allergies: Coded Allergies: NO KNOWN ALLERGIES (10/21/11) Home Med List: Amlodipine Besylate (Norvasc) 5 MG TABLET 1 TAB PO DAILY HEART (Reported) Ascorbate Calcium (Vitamin C) 500 MG TABLET 1 TAB PO DAILY VITAMIN SUPPORT ( Reported) Baclofen 10 MG TABLET 1 TAB PO BID SPASM (Reported) Cholecalciferol (Vitamin D3) (Vitamin D3) 2,000 UNIT TABLET 1 TAB PO DAILY VITAMIN SUPPORT (Reported) Cranberry Extract (Cranberry) (Unknown Strength) CAPSULE (Unknown Dose) PO BID SUPPLEMENT (Reported) Duloxetine HCl (Cymbalta) 60 MG CAPSULE.DR 1 CAP PO DAILY DEPRESSION ( Reported) Furosemide 20 MG TABLET 1 TAB PO DAILY EDEMA (Reported) Losartan Potassium (Cozaar) 50 MG TABLET 1 TAB PO DAILY HEART (Reported) Multivitamin (Daily Multiple Vitamin) 1 EACH TABLET 1 TAB PO DAILY VITAMIN SUPPORT (Reported) Potassium Chloride (K-Tab ER) 20 MEQ TABLET.ER 1 TAB PO DAILY SUPPLEMENT ( Reported) Sennosides (Senokot) 8.6 MG TABLET 1 TAB PO QPM CONSTIPATION (Reported) Tizanidine HCl (Zanaflex) 4 MG CAPSULE 1 CAP PO BID SPASMS (Reported) Trazodone HCl 100 MG TABLET 1 TAB PO QPM SLEEP (Reported) Current Medications: Current Medications Sig/Nya Start time Last Medication Dose Route Stop Time Status Admin Acetaminophen 1,000 MG Q6P PRN 06/21 1900 AC IV Ascorbic Acid 500 MG DAILY 06/22 1000 AC 06/22 PO 0943 Aspirin 81 MG DAILY 06/21 1929 AC 06/22 PO 0943 Baclofen 10 MG BID 06/21 2200 AC 06/22 PO 0943 Ceftriaxone Sodium 1,000 MG Q24H 06/22 220 AC IV Ceftriaxone Sodium 1,000 MG DAILY 06/21 1916 DC 06/21 IV 2144 Cholecalciferol 2,000 IU DAILY 06/22 1000 AC 06/22 PO 0943 Duloxetine HCl 60 MG DAILY 06/22 1000 AC 06/22 PO 0943 Furosemide 20 MG DAILY 06/22 1000 AC 06/22 PO 0943 Heparin Sodium 5,000 UNIT Q8 06/21 2199 AC 06/22 (Porcine) SC 0531 Metoprolol Tartrate 12.5 MG BID 06/21 220 AC 06/22 PO 1053 Multivitamins 1 TAB DAILY 06/22 1000 AC 06/22 Therapeutic PO 0943 Phosphate 250 MG PC AND AT BEDTIME 06/22 0900 AC 06/22 PO 06/22 2300 0935 Potassium Chloride 20 MEQ DAILY 06/22 1000 AC 06/22 PO 0935 Senna 187 MG AT BEDTIME 06/21 220 AC 06/21 PO 2144 Sodium Chloride 500 ML BOLUS ONE 06/22 0030 DC 06/22 IV 06/22 0129 0031 Sodium Chloride 1,000 ML Q13H 06/21 1930 AC 06/22 IV 0809 Sodium Chloride 1,000 ML BOLUS ONE 06/21 1245 DC 06/21 IV 06/21 1344 1310 Tizanidine HCl 4 MG 1200,0 06/22 1200 AC 06/22 PO 1217 Tizanidine HCl 4 MG 0000 PRN 06/22 1045 AC PO Tizanidine HCl 4 MG BID 06/21 220 DC 06/22 PO 0943 Trazodone HCl 100 MG QPM 06/21 220 AC 06/21 PO 2144 Review of Systems Review of Systems: Review of systems as per HPI. The remainder of a 10 point review of systems was reviewed and was otherwise negative. 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 Residential Services at Home: Nursing Smoking Status: Never Smoked Exam & Diagnostic Data Vital Signs and I&O Vital Signs Date Time Temp Pulse Resp B/P B/P Pulse O2 O2 Flow FiO2 Mean Ox Delivery Rate 06/22 1053 62 120/71 06/22 0800 Room Air 06/22 0800 97.7 60 18 120/80 94 Room Air 06/22 0400 99 Room Air 06/22 0000 100 Room Air 06/22 0000 97.5 62 20 86/63 100 Room Air 06/21 2147 99.5 75 20 180/79 06/21 2000 95 Room Air 06/21 1757 97.6 78 18 122/74 98 Room Air 06/21 1420 97.0 82 22 111/75 97 Intake & Output 06/22 1600 06/22 0800 06/22 0000 06/21 1600 06/21 0800 06/21 0000 Intake Total 1190 2230 Output Total 178 80 Balance 1012 2150 Intake, IV 1190 2150 Intake, Oral 80 Number 1 1 Bowel Movements Output, Urine 178 80 Patient 198 lb 198 lb Weight Weight Bed scale Measurement Method Physical Exam: General: no apparent distress. Eyes: No obvious scleral icterus. HEENT: No jugular venous distention or abnormal jugular venous pulsations. Cardiovascular: Normal intensity S1/S2. One out of 6 systolic murmur Respiratory: Lungs clear to auscultation bilaterally. Abdomen: Soft, nontender with no guarding or rebound tenderness. Musculoskeletal: No clubbing or cyanosis noted, no edema Skin: Warm Neurologic: Slow speech Lymph: No gross lymphadenopathy. Labs/Aurelio Results: Laboratory Tests 06/22 06/22 06/22 0340 0340 0000 Chemistry Sodium (137 - 145 mmol/L) 144 Potassium (3.5 - 5.1 mmol/L) 3.8 Chloride (98 - 107 mmol/L) 109 H Carbon Dioxide (22 - 30 mmol/L) 25 Anion Gap (5 - 16) 10 BUN (7 - 17 mg/dL) 12 Creatinine (0.5 - 1.0 mg/dL) 0.6 Estimated GFR (>60 ml/min) > 60 Glucose (65 - 99 mg/dL) 92 Lactic Acid (0.7 - 2.1 mmol/L) 1.7 Calcium (8.4 - 10.2 mg/dL) 8.8 Phosphorus (2.5 - 4.5 mg/dL) 2.7 Magnesium (1.6 - 2.3 mg/dL) 1.9 Total Bilirubin (0.2 - 1.3 mg/dL) 0.8 AST (14 - 36 U/L) 55 H ALT (9 - 52 U/L) 141 H Troponin I (< 0.11 ng/ml) 0.79 *H Albumin (3.5 - 5.0 g/dL) 3.2 L Hematology CBC w Diff NO MAN DIFF REQ WBC (4.8 - 10.8 /CUMM) 8.2 RBC (4.20 - 5.40 /CUMM) 4.72 Hgb (12.0 - 16.0 G/DL) 14.1 Hct (37 - 47 %) 42.7 MCV (81.0 - 99.0 FL) 90.5 MCH (27.0 - 31.0 PG) 29.8 MCHC (33.0 - 37.0 G/DL) 32.9 L RDW (11.5 - 14.5 %) 13.6 Plt Count (130 - 400 /CUMM) 185 MPV (7.4 - 10.4 FL) 10.8 H Gran % (42.2 - 75.2 %) 59.8 Lymphocytes % (20.5 - 51.1 %) 29.5 Monocytes % (1.7 - 9.3 %) 9.5 H Eosinophils % (0 - 5 %) 0.8 Basophils % (0.0 - 2.0 %) 0.4 Absolute Granulocytes (1.4 - 6.5 /CUMM) 4.9 Absolute Lymphocytes (1.2 - 3.4 /CUMM) 2.4 Absolute Monocytes (0.10 - 0.60 /CUMM) 0.8 H Absolute Eosinophils (0.0 - 0.7 /CUMM) 0.1 Absolute Basophils (0.0 - 0.2 /CUMM) 0 06/21 06/21 06/21 2115 1751 1401 Chemistry Lactic Acid (0.7 - 2.1 mmol/L) 2.7 H 2.8 H Cancelled Troponin I (< 0.11 ng/ml) 1.34 *H 06/21 06/21 1251 1126 Chemistry Sodium (137 - 145 mmol/L) 141 Potassium (3.5 - 5.1 mmol/L) 4.0 Chloride (98 - 107 mmol/L) 102 Carbon Dioxide (22 - 30 mmol/L) 21 L Anion Gap (5 - 16) 17 H BUN (7 - 17 mg/dL) 15 Creatinine (0.5 - 1.0 mg/dL) 0.5 Estimated GFR (>60 ml/min) > 60 BUN/Creatinine Ratio (7 - 25 %) 30.0 H Glucose (65 - 99 mg/dL) 168 H Calcium (8.4 - 10.2 mg/dL) 9.4 Magnesium (1.6 - 2.3 mg/dL) 1.9 Total Bilirubin (0.2 - 1.3 mg/dL) 0.7 AST (14 - 36 U/L) 86 H ALT (9 - 52 U/L) 213 H Alkaline Phosphatase (<127 U/L) 113 Troponin I (< 0.11 ng/ml) 0.52 *H Total Protein (6.3 - 8.2 g/dL) 7.1 Albumin (3.5 - 5.0 g/dL) 4.1 Globulin (1.9 - 4.2 gm/dL) 3.0 Albumin/Globulin Ratio (1.1 - 2.2 %) 1.4 Amylase (30 - 110 U/L) 79 Lipase (23 - 300 U/L) 151 TSH (0.270 - 4.200 uIU/mL) 0.475 Free T4 (0.64 - 1.79 ng/dL) 1.49 Coagulation PT (9.4 - 12.5 SEC) 11.7 INR (0.90 - 1.19) 1.07 APTT (25 - 37 SEC) 34 Hematology CBC w Diff MAN DIFF ORDERED WBC (4.8 - 10.8 /CUMM) 11.9 H RBC (4.20 - 5.40 /CUMM) 5.29 Hgb (12.0 - 16.0 G/DL) 16.0 Hct (37 - 47 %) 46.8 MCV (81.0 - 99.0 FL) 88.5 MCH (27.0 - 31.0 PG) 30.3 MCHC (33.0 - 37.0 G/DL) 34.2 RDW (11.5 - 14.5 %) 12.8 Plt Count (130 - 400 /CUMM) 205 MPV (7.4 - 10.4 FL) 10.4 Gran % (42.2 - 75.2 %) 93.3 H Lymphocytes % (20.5 - 51.1 %) 4.7 L Monocytes % (1.7 - 9.3 %) 1.7 Eosinophils % (0 - 5 %) 0 Basophils % (0.0 - 2.0 %) 0.3 Absolute Granulocytes (1.4 - 6.5 /CUMM) 11.1 H Absolute Lymphocytes (1.2 - 3.4 /CUMM) 0.6 L Absolute Monocytes (0.10 - 0.60 /CUMM) 0.2 Absolute Eosinophils (0.0 - 0.7 /CUMM) 0 Absolute Basophils (0.0 - 0.2 /CUMM) 0 Platelet Estimate (ADEQUATE) ADEQUATE Normocytic RBCs VERIFIED Normochromic RBCs VERIFIED Urines Urine Color (YEL,AMB,STR) YEL Urine Clarity (CLEAR) CLDY H Urine pH (5.0 - 8.0) 5.5 Ur Specific [place] (1.001 - 1.035) >= 1.030 Urine Protein (NEG,<30 MG/DL) 30 H Urine Ketones (NEG) 40 H Urine Nitrite (NEG) POS H Urine Bilirubin (NEG) NEG Urine Urobilinogen (0.1 - 1.0 EU/dl) 0.2 Ur Leukocyte Esterase (NEG) SMALL H Ur Microscopic SEDIMENT EXAMINED Urine RBC (0 - 5 /HPF) 1-3 Urine WBC (0 - 2 /HPF) 25-50 H Ur Epithelial Cells (NONE,FEW) FEW Urine Bacteria (NEG/NONE) MANY H Urine Hemoglobin (NEG) TRACE-INTACT Urine Glucose (N MG/DL) NEG Urine Test NEGATIVE 06/21 06/21 1101 1100 Chemistry Lactic Acid (0.7 - 2.1 mmol/L) 1.7 Cancelled Diagnostic Data EKG Results Tracing was personally reviewed and showed atrial fibrillation with rapid ventricular response rate and nonspecific STT abnormality; Subsequent ECG shows a sinus rhythm with nonspecific T-wave abnormalities; prior anterolateral infarct pattern cannot be excluded CXR Results Stable moderate elevation of the left hemidiaphragm. Hazy airspace opacity in the left lung base, which may reflect atelectasis or evolving infiltrate. There is bronchial wall thickening present which may reflect reactive small airway disease or bronchitis. Other Results Telemetry tracings were personally reviewed and shows a sinus rhythm with a 13 beat wide complex run Assessment/Plan Assessment/Plan 1. Nausea/vomiting/diarrhea possibly due to viral gastroenteritis 2. New onset rapid atrial fibrillation with spontaneous conversion to sinus rhythm; likely precipitated by gastritis 3. Elevated troponin most likely due to supply/demand mismatch 4. History of bicuspid aortic valve 5. History of hypertension 6. History of Friedreich's ataxia 7. NSVT The patient's elevated troponin is likely due to supply demand mismatch in the setting of the transient atrial fibrillation and possible gastroenteritis. Would hold off on anticoagulation as this may be an isolated episode of atrial fibrillation; we'll plan for additional outpatient screening for recurrent atrial fibrillation in the future. We'll obtain a transthoracic echocardiogram. Agree with the low-dose beta rai. Would aim to keep potassium above 4.0 and magnesium above 2.0. Agree with daily low-dose aspirin. She may be a candidate for noninvasive ischemic testing in the future as an outpatient. Matteo Mccall MD [facility] Consult Acknowledgment - Thank you for your consult request.
[2017-06-22 16:00] VITALS: BP 110/64
[2017-06-22 19:15] VITALS: BP 128/85
[2017-06-22 20:58] VITALS: BP 136/86
[2017-06-22 22:32] VITALS: BP 100/72
[2017-06-23 06:34] VITALS: BP 104/68
--- NOTE | 2017-06-23 07:28 | ECHOCARDIOGRAM REPORT ---
FLORINA RANDALL Age: 51 : 1965 Gender: F Exam Date: 06/22/2017 15:18 Exam Location: [facility] Ht (in): 65 Wt (lb): 200 BSA: 2.07 BP: 86 / 63 Ordering Physician: Yannick Sarkar MD Referring Physician: Yannick Sarkar MD Technologist: David Bills [facility] Room Number: 110-01 Indications: CHEST PAIN Rhythm: Sinus Technical Quality: terchnically difficult/ somewhat limited study FINDINGS Left Ventricle Left ventricle not well visualized, grossly normal. Left ventricular ejection fraction is estimated at 60 %. Right Ventricle Right ventricle not well visualized, grossly normal. Right Atrium Normal right atrial size. Left Atrium Left atrium not well visualized, grossly normal. Mitral Valve Mitral valve normal in structure and function. Aortic Valve Aortic valve not well visualized, grossly normal. Tricuspid Valve Tricuspid valve not well visualized, grossly normal. Mild tricuspid regurgitation. Pulmonic Valve Pulmonic valve not well visualized, grossly normal. Pericardium No pericardial effusion. Great Vessels Aortic root and proximal ascending aorta not well visualized. CONCLUSIONS Technically difficult study. Normal left and right ventricular systolic function. No obvious valvular abnormalities noted. Sundeep Bethea M.D. (Electronically Signed) Final Date: 23 June 2017 07:28 MEASUREMENTS (Male / Female) Normal Values 2D ECHO LV Diastolic Diameter PLAX 5.1 cm 4.2 - 5.9 / 3.9 - 5.3 cm LV Systolic Diameter PLAX 3.6 cm 2.1 - 4.0 cm LV Fractional Shortening PLAX 29.4 % 25 - 46 % LV Ejection Fraction 2D Teich 56.0 % IVS Diastolic Thickness 1.0 cm LVPW Diastolic Thickness 1.0 cm LV Relative Wall Thickness 0.4 DOPPLER Mitral E Point Velocity 46.9 cm/s Mitral A Point Velocity 29.6 cm/s Mitral E to A Ratio 1.6 TR Peak Velocity 214.0 cm/s TR Peak Gradient 18.3 mmHg PV Peak Velocity 88.2 cm/s PV Peak Gradient 3.1 mmHg
[2017-06-23 08:33] LABS: ABSOLUTE BASOPHIL COUNT 0.1 /CUMM (0.0-0.2); ABSOLUTE EOSINOPHIL COUNT 0.2 /CUMM (0.0-0.7); ABSOLUTE GRANULOCYTE CT 2.7 /CUMM (1.4-6.5); ABSOLUTE MONOCYTE COUNT 0.4 /CUMM (0.10-0.60); EOSINOPHIL % 4.1 % (0-5); GRANULOCYTE % 50.3 % (42.2-75.2); HEMATOCRIT 39.1 % (37-47); MEAN CORPUSCULAR HGB 30.5 PG (27.0-31.0); MEAN CORPUSCULAR HGB CONC 33.7 G/DL (33.0-37.0); MEAN CORPUSCULAR VOLUME 90.4 FL (81.0-99.0); MEAN PLATELET VOLUME 11.4 FL (7.4-10.4); PLATELET COUNT 144 /CUMM (130-400); RBC DISTRIBUTION WIDTH 13.5 % (11.5-14.5); RED BLOOD CELL CT 4.32 /CUMM (4.20-5.40); WHITE BLOOD CELL COUNT 5.4 /CUMM (4.8-10.8)
--- NOTE | 2017-06-23 10:27 | PN- Housestaff ---
Maliha ARZOLA,Nany 06/23/17 1027: Subjective Follow-up For: #New onset atrial fibrillation with rapid ventricular response, currently rate controlled #Urinary tract infection #Chronic muscle spasm Tele-Events Since Last Visit: SVNSR 5464, QRS 0.08, [place] 0.12, PVCs at 4 AM Subjective: Patient was seen and examined at bedside, denies any complaints, no overnight events Review of Systems Constitutional: Reports: see HPI. Objective Last 24 Hrs of Vital Signs/I&O Vital Signs Date Time Temp Pulse Resp B/P B/P Pulse O2 O2 Flow FiO2 Mean Ox Delivery Rate 06/23 0817 75 110/70 06/23 0801 95 Nasal 2.0L Cannula 06/23 0634 97.2 61 22 104/68 96 Nasal Cannula 06/23 0000 Nasal 2.0L Cannula 06/22 2232 96.8 51 24 100/72 98 06/22 2100 60 136/86 06/22 2058 60 136/86 06/22 1915 97.7 64 20 128/85 98 Nasal 2.0L Cannula 06/22 1600 95 Nasal 2.0L Cannula 06/22 1600 96.2 62 24 110/64 95 Nasal 2.0L Cannula Intake & Output 06/23 1600 06/23 0800 06/23 0000 Intake Total 800 440 Output Total 100 200 Balance 700 240 Intake, IV 800 320 Intake, Oral 120 Output, Urine 100 200 Patient 200 lb Weight Physical Exam General Appearance: Alert, Oriented X3, Cooperative, No Acute Distress HEENT: Atraumatic, PERRLA, EOMI, Mucous Membr. moist/pink Neck: Supple, No JVD Cardiovascular: Normal S1, Normal S2, No Murmurs Lungs: Clear to Auscultation Abdomen: Normal Bowel Sounds, Soft, No Tenderness Extremities: No Clubbing, No Cyanosis, 1+ PITTING EDEMA Vascular: Normal Pulses Assessment/Plan Assessment: 51-year-old female with history of Friedreich's ataxia, traumatic brain injury, with residual muscle spasms hypertension, bicuspid aortic valve, previous gallstone pancreatitis, who lives in a ch[facility], was brought into the emergency department for complaints of nausea, vomiting, loose stools, 4 episodes for 1 day. She was last seen by her nurse on 06/20/2017 without any issues. She specifically denies any chest pain, palpitation, dizziness, shortness of breath, abdominal pain. She was transferred from ICU to telemetry for follow-up on #New onset atrial fibrillation with rapid ventricular response, currently rate controlled * The patient is already in sinus rhythm right * Patient was noticed to have increased responsE to metoprolol * DC metoprolol for now * Her echo represented poor window but normal overall systolic function, it may be difficult for her to do noninvasive testing was Catrina ataxia, can be done outpatient * Cardiology recommendation appreciated #Urinary tract infection * urine culture from 0 06/21 was positive for E. coli and alpha strep burt sensitive * Continue IV ceftriaxone (day 2) * Maintain hydration #Muscle spasms, chronic * Continue home medications of baclofen and tizanidine as prescribed (per home med timings) # Type 2 FL: Most likely her elevated troponin on admission was due to discrepancy between oxygen supply and demand #MBS today show fidel aspiration with thin liquid. #Diet: Puree /Honey consistency Regular diet #DVT ppx: SQ Heparin #Code status: Full code Problem List: 1. UTI (urinary tract infection) 2. Elevated troponin 3. Paroxysmal A-fib Pain Ratin Pain Location: N/A Pain Goal: Remain pain free Pain Plan: PATHWAY Tomorrow's Labs & Rationales: CBC BEP Megan Medinamitesh 06/23/17 1347: Attending MD Review Statement Attending Statement Attending MD Statement: examined this patient, discuss w/resident/PA/CAD DESIGNER DRAFTER, agreed w/resident/PA/CAD DESIGNER DRAFTER, reviewed EMR data (avail), discussed with nursing, discussed with case mgmt Attending Assessment/Plan: Dysphagia-Pt according to the william was choking with pureed diet and nectar thick liquids secondary to her dysphagia. Planned for modified barium swallow today. Type 2 FL- Stable. cont iwth medical management. Afib- new onset- cont on metoprolol per cardio. Conerted to NSR now. cont to monitor on tele. d/w pt and pts nurse the care plan.
--- NOTE | 2017-06-23 10:58 | PN- Cardiology ---
Subjective Subjective: Patient is off the monitor. Reported hypersensitivity to metoprolol. Objective Vital Signs and I&Os Vital Signs Date Time Temp Pulse Resp B/P B/P Pulse O2 O2 Flow FiO2 Mean Ox Delivery Rate 06/23 0817 75 110/70 06/23 0801 95 Nasal 2.0L Cannula 06/23 0634 97.2 61 22 104/68 96 Nasal Cannula 06/23 0000 Nasal 2.0L Cannula 06/22 2232 96.8 51 24 100/72 98 06/22 2100 60 136/86 06/22 2058 60 136/86 06/22 1915 97.7 64 20 128/85 98 Nasal 2.0L Cannula 06/22 1600 95 Nasal 2.0L Cannula 06/22 1600 96.2 62 24 110/64 95 Nasal 2.0L Cannula 06/22 1200 Nasal 2.0L Cannula Intake & Output 06/23 1600 06/23 0800 06/23 0000 06/22 1600 06/22 0800 06/22 0000 Intake Total 811 155 0737 1190 2230 Output Total 100 200 450 178 80 Balance 644 721 0886 1012 2150 Intake, IV 800 211 570 2339 2150 Intake, Oral 120 700 80 Number 1 1 1 Bowel Movements Output, Urine 100 200 450 178 80 Patient 200 lb 198 lb 198 lb Weight Weight Bed scale Measurement Method Physical Exam: Patient appears comfortable Head normocephalic atraumatic Eyes sclera anicteric conjunctiva showed no pallor extraocular muscles were normal Neck no jugular venous distention no thyroid masses no palpable nodes Chest lungs were clear bilaterally Heart regular rhythm without murmurs Abdomen soft no organomegaly bowel sounds normal extremities and extremities no clubbing cyanosis or edema. Neurological patient has Friedreich's ataxia Current Medications: Current Medications Sig/Nya Start time Last Medication Dose Route Stop Time Status Admin Acetaminophen 1,000 MG Q6P PRN 06/21 1900 AC IV Ascorbic Acid 500 MG DAILY 06/22 1000 AC 06/23 PO 0816 Aspirin 81 MG DAILY 06/21 1929 AC 06/23 PO 0818 Baclofen 10 MG BID 06/21 2199 AC 06/23 PO 08 Ceftriaxone Sodium 1,000 MG Q24H 06/22 2199 AC 06/22 IV 2100 Cholecalciferol 2,000 IU DAILY 06/22 1000 AC 06/23 PO 0817 Duloxetine HCl 60 MG DAILY 06/22 1000 AC 06/23 PO 0817 Furosemide 20 MG DAILY 06/22 1000 AC 06/23 PO 0817 Heparin Sodium 5,000 UNIT Q8 06/21 220 AC 06/23 (Porcine) SC 0551 Metoprolol Tartrate 12.5 MG BID 06/21 220 AC 06/23 PO 0817 Multivitamins 1 TAB DAILY 06/22 1000 AC 06/23 Therapeutic PO 0817 Phosphate 250 MG PC AND AT BEDTIME 06/22 0900 DC 06/22 PO 06/22 2300 1353 Potassium Chloride 20 MEQ DAILY 06/22 1000 AC 06/23 PO 0818 Senna 187 MG AT BEDTIME 06/21 220 AC 06/22 PO 2100 Sodium Chloride 250 ML BOLUS ONE 06/22 1415 DC 06/22 IV 06/22 1514 1415 Sodium Chloride 1,000 ML Q13H 06/21 1930 DC 06/23 IV 0425 Tizanidine HCl 4 MG 1200,2200 06/22 1200 AC 06/22 PO 2100 Tizanidine HCl 4 MG 0000 PRN 06/22 1045 AC PO Trazodone HCl 100 MG QPM 06/21 220 AC 06/22 PO 2100 Results Last 48 Hrs of Labs/Mics: Laboratory Tests 06/23/17 0635: Anion Gap 10, Estimated GFR > 60, BUN/Creatinine Ratio 18.3, Magnesium 1.7, CBC w Diff NO MAN DIFF REQ, RBC 4.32, MCV 90.4, MCH 30.5, MCHC 33.7, RDW 13.5, MPV 11.4 H, Gran % 50.3, Lymphocytes % 37.0, Monocytes % 7.6, Eosinophils % 4.1, Basophils % 1.0, Absolute Granulocytes 2.7, Absolute Lymphocytes 2.0, Absolute Monocytes 0.4, Absolute Eosinophils 0.2, Absolute Basophils 0.1 06/22/17 0340: Troponin I 0.79 *H 06/22/17 0340: Anion Gap 10, Estimated GFR > 60, Glucose 92, Calcium 8.8, Phosphorus 2.7, Magnesium 1.9, Total Bilirubin 0.8, AST 55 H, ALT 141 H, Albumin 3.2 L, CBC w Diff NO MAN DIFF REQ, RBC 4.72, MCV 90.5, MCH 29.8, MCHC 32.9 L, RDW 13.6, MPV 10.8 H, Gran % 59.8, Lymphocytes % 29.5, Monocytes % 9.5 H, Eosinophils % 0.8, Basophils % 0.4, Absolute Granulocytes 4.9, Absolute Lymphocytes 2.4, Absolute Monocytes 0.8 H, Absolute Eosinophils 0.1, Absolute Basophils 0 06/22/17 0000: Lactic Acid 1.7 06/21/17 2115: Lactic Acid 2.7 H, Troponin I 1.34 *H 06/21/17 1751: Lactic Acid 2.8 H 06/21/17 1401: Lactic Acid Cancelled 06/21/17 1251: Urine Color YEL, Urine Clarity CLDY H, Urine pH 5.5, Ur Specific [place] >= 1.030, Urine Protein 30 H, Urine Ketones 40 H, Urine Nitrite POS H, Urine Bilirubin NEG, Urine Urobilinogen 0.2, Ur Leukocyte Esterase SMALL H, Ur Microscopic SEDIMENT EXAMINED, Urine RBC 1-3, Urine WBC 25-50 H, Ur Epithelial Cells FEW, Urine Bacteria MANY H, Urine Hemoglobin TRACE-INTACT, Urine Glucose NEG, Urine Test NEGATIVE 06/21/17 1126: Anion Gap 17 H, Estimated GFR > 60, BUN/Creatinine Ratio 30.0 H, Glucose 168 H, Calcium 9.4, Magnesium 1.9, Total Bilirubin 0.7, AST 86 H, ALT 213 H, Alkaline Phosphatase 113, Troponin I 0.52 *H, Total Protein 7.1, Albumin 4.1, Globulin 3.0, Albumin/Globulin Ratio 1.4, Amylase 79, Lipase 151, TSH 0.475, Free T4 1.49, PT 11.7, INR 1.07, APTT 34, CBC w Diff MAN DIFF ORDERED, RBC 5.29, MCV 88.5, MCH 30.3, MCHC 34.2, RDW 12.8, MPV 10.4, Gran % 93.3 H, Lymphocytes % 4.7 L, Monocytes % 1.7, Eosinophils % 0, Basophils % 0.3, Absolute Granulocytes 11.1 H, Absolute Lymphocytes 0.6 L, Absolute Monocytes 0.2, Absolute Eosinophils 0, Absolute Basophils 0, Platelet Estimate ADEQUATE, Normocytic RBCs VERIFIED, Normochromic RBCs VERIFIED 06/21/17 1101: Lactic Acid 1.7 06/21/17 1100: Lactic Acid Cancelled Microbiology 06/21 1944 UPPER RESP: Surveillance Culture - COMP METH RESIST STAPH AUREUS 06/21 1944 GI: Surveillance Culture - COMP Recent Imaging Studies: Echocardiogram. Technically poor quality study. However grossly normal left and right ventricular systolic function. No significant valvular abnormalities noted Assessment/Plan Assessment/Plan In summary this 51-year-old female has the following problems 1. Nausea/vomiting/diarrhea possibly due to viral gastroenteritis 2. New onset rapid atrial fibrillation with spontaneous conversion to sinus rhythm; likely precipitated by gastritis 3. Elevated troponin most likely due to supply/demand mismatch 4. History of bicuspid aortic valve 5. History of hypertension 6. History of Friedreich's ataxia 7. NSVT Her echocardiogram represents a poor window but normal overall systolic function. There appears to be a hypersensitivity to metoprolol with respect to blood pressure. Since her atrial fibrillation was probably related to electrolyte disturbance in the setting of gastritis and this is now resolved we can discontinue metoprolol at this time. It might be difficult for her to do noninvasive testing with a Friedreich's ataxia. However this can be considered as an outpatient. Continue telemetry? Yes
[2017-06-23] MEDS ORDERED: ASPIRIN81 M4 PO (11:06)
--- NOTE | 2017-06-23 11:48 | RADIOLOGY REPORT ---
EXAMINATION: XR MODIFIED BARIUM SWALLOW CLINICAL INFORMATION: 51-year-old female with muscle weakness, history of Catrina ataxia, suspected aspiration. COMPARISON: None TECHNIQUE: Modified barium swallow was performed with the space therapist. FINDINGS: Minimal residual is noted within the vallecula with puree. Suspected aspiration with nectar (one out of 3 trials). Maulik aspiration with thin liquid followed by cough. FLUOROSCOPY TIME: 3 minutes 25 seconds NUMBER OF IMAGES: 18 images IMPRESSION: Maulik aspiration with thin liquid. For further full details, please refer to the speech therapist's report.
--- NOTE | 2017-06-23 13:25 | Discharge Summary ---
See Addendum Visit Information Visit Dates Admission Date: 06/21/17 Discharge Date: 06/24/2017 Hospital Course Course Attending Physician: Adam ARZOLA,Anamaria Lopez Primary Care Physician: Too ARZOLA,[facility] Course: Ms. Coon is 51-year-old female with PMH significant for Friedreich's ataxia, traumatic brain injury, with residual muscle spasms, hypertension, bicuspid aortic valve, previous gallstone pancreatitis, who lives in a shelter. Patient presented to ED with chief complaint of nausea, vomiting, loose stools, 4 episodes for 1 day. #In ED patient was found to have elevated troponins that most likely due to supply/demand mismatch and new onset atrial fibrillation with rapid ventricular response that responded to metoprolol 12.5 mg and converted to sinus rhythm, remained on sinus rhythm on monitor and storage bin tender. Patient was admitted initially to ICU for labile blood pressure. Patient was maintained off antihypertensive amlodipine, losartan, Lasix for edema and also was kept off metoprolol without any recurrence of atrial fibrillation. Cardiology recommendation was obtained, echocardiogram normal EF with no regional wall motion abnormalities, recommendation to follow off beta-rai since it is an isolated episode of atrial fibrillation and follow in outpatient 1-2 weeks after discharge for further testing. Blood pressure medications were discontinued as patient maintained blood pressure on lowside without any blood pressure medication during hospital stay. Continue baby aspirin. Patient was found to have UTI on admission and started on ceftriaxone IV 3 days. Patient was discharged off antibiotics. Patient had swallow evaluation in hospital with modified barium swallow evaluation and her diet was changed from chopped to pure and honey thick liquids. Patient should have adequate oral intake since blood pressure in the low side. Rest of home medication baclofen and tizanidine were continued (per home med timings) #Diet: Puree /Honey consistency #DVT ppx: SQ Heparin #Code status: Full code Allergies: Coded Allergies: NO KNOWN ALLERGIES (10/21/11) Disposition Summary Disposition Principal Diagnosis: New onset rapid atrial fibrillation with spontaneous conversion to sinus rhythm; likely precipitated by gastritis Additional Diagnosis: UTI Discharge Disposition: home or self care Discharge Instructions General Discharge Information Code Status: Full Code Patient's Diet: Puree /Honey consistency Patient's Activity: as tolerated Follow-Up Instructions/Appts: 1please follow-up with your PCP in 1 week of discharge 3please follow-up with your industrial pipefitter journeyman in 1 week of discharge Medications at Discharge Discharge Medications: Stop taking the following medications: Losartan Potassium (Cozaar) 50 MG TABLET ORAL DAILY Amlodipine Besylate (Norvasc) 5 MG TABLET ORAL DAILY Furosemide (Furosemide) 20 MG TABLET ORAL DAILY Continue taking these medications: Potassium Chloride (K-Tab ER) 20 MEQ TABLET.ER 1 Tablet ORAL DAILY Comments: Last Taken: 06/24/17 Time: 10 AM Duloxetine HCl (Cymbalta) 60 MG CAPSULE.DR 1 Capsule ORAL DAILY Comments: Last Taken: 06/24/17 Time: 10 AM Baclofen (Baclofen) 10 MG TABLET 1 Tablet ORAL TWICE DAILY Comments: Last Taken: 06/24/17 Time: 10 AM Tizanidine HCl (Zanaflex) 4 MG CAPSULE 1 Capsule ORAL TWICE DAILY Comments: Last Taken: 06/24/17 Time: NOON Trazodone HCl (Trazodone HCl) 100 MG TABLET 1 Tablet ORAL Every night Comments: Last Taken: 06/23/17 Time: 9 PM Cranberry Extract (Cranberry) (Unknown Strength) CAPSULE Unknown Dose ORAL TWICE DAILY Comments: DID NOT RECIEVE IN HOSPITAL Multivitamin (Daily Multiple Vitamin) 1 EACH TABLET 1 Tablet ORAL DAILY Comments: Last Taken: 06/24/17 Time: 10 AM Sennosides (Senokot) 8.6 MG TABLET 1 Tablet ORAL Every night Comments: DID NOT RECIEVE Ascorbate Calcium (Vitamin C) 500 MG TABLET 1 Tablet ORAL DAILY Comments: Last Taken: 06/24/17 Time: 10 AM Cholecalciferol (Vitamin D3) (Vitamin D3) 2,000 UNIT TABLET 1 Tablet ORAL DAILY Comments: Last Taken: 06/24/17 Time: 10 AM Start taking the following new medications: Aspirin (Aspirin*) 81 MG TAB.CHEW 81 Milligram ORAL DAILY Qty = 30 No Refills Comments: Last Taken: 06/24/17 Time: 10 AM Starch (Thick-It) 1 EACH POWD.PACK 1 Packet ORAL DAILY Qty = 2 No Refills Instructions: Slowly add Thick-It Thickener to the liquid while stirring briskly with a spoon, fork or whisk until thickener has dissolved. Copies To: Cal ARZOLA,Mingo; Too ARZOLA,Anitha
[2017-06-23 14:38] VITALS: BP 110/70
[2017-06-23 23:00] VITALS: BP 88/55
[2017-06-24 01:22] VITALS: BP 98/63
[2017-06-24 03:12] VITALS: BP 100/58
[2017-06-24 06:30] VITALS: BP 112/73
--- NOTE | 2017-06-24 07:13 | PN- Housestaff ---
Maliha ARZOLA,Nany 06/24/17 0712: Subjective Follow-up For: #New onset atrial fibrillation with rapid ventricular response, currently rate controlled #Urinary tract infection #Chronic muscle spasm Tele-Events Since Last Visit: Sinus bradycardia, 5157, QRS 0.08, 0.1, no overnight events Subjective: Patient was seen and examined at bedside, denies any complaints, blood pressure was low last night 88/55, patient was given initial bolus of 250 however her blood pressure did not respond, was given another bolus of 500 and his blood pressure improved Review of Systems Constitutional: Reports: see HPI. Objective Last 24 Hrs of Vital Signs/I&O Vital Signs Date Time Temp Pulse Resp B/P B/P Pulse O2 O2 Flow FiO2 Mean Ox Delivery Rate 06/24 0800 96 Nasal 2.0L Cannula 06/24 0630 97.5 48 22 112/73 98 06/24 0312 57 100/58 06/24 0122 56 98/63 06/24 0000 Nasal 2.0L Cannula 06/23 2300 97.4 67 20 88/55 96 06/23 1600 Nasal 2.0L Cannula 06/23 1438 98.6 58 18 110/70 98 Intake & Output 06/24 1600 06/24 0800 06/24 0000 Intake Total 750 320 Output Total 150 350 Balance 600 -30 Intake, IV 750 Intake, Oral 320 Output, Urine 150 350 Patient 217 lb Weight Weight Bed scale Measurement Method Physical Exam General Appearance: Alert, Cooperative, No Acute Distress HEENT: Atraumatic, PERRLA, EOMI, Mucous Membr. moist/pink Neck: Supple, No JVD Cardiovascular: Normal S1, Normal S2, No Murmurs Lungs: Clear to Auscultation Abdomen: Normal Bowel Sounds, Soft, No Tenderness Extremities: No Clubbing, No Cyanosis, No Edema Vascular: Normal Pulses Assessment/Plan Assessment: 51-year-old female with history of Friedreich's ataxia, traumatic brain injury, with residual muscle spasms hypertension, bicuspid aortic valve, previous gallstone pancreatitis, who lives in a skilled nursing, was brought into the emergency department for complaints of nausea, vomiting, loose stools, 4 episodes for 1 day. She was last seen by her nurse on 06/20/2017 without any issues. She specifically denies any chest pain, palpitation, dizziness, shortness of breath, abdominal pain. She was transferred from ICU to telemetry for follow-up on #New onset atrial fibrillation with rapid ventricular response, currently rate controlled * The patient is already in sinus rhythm right * Patient was noticed to have increased responsE to metoprolol * Continue to hold metoprolol for now * Her echo represented poor window but normal overall systolic function, it may be difficult for her to do noninvasive testing was Catrina ataxia, can be done outpatient * Cardiology recommendation appreciated #History of hypertension: * Blood pressure was running low * Would hold Norvasc, Lasix, metoprolol #Urinary tract infection * urine culture from 0 06/21 was positive for E. coli and alpha strep burt sensitive * Continue IV ceftriaxone (day 3) * Maintain hydration #Muscle spasms, chronic * Continue home medications of baclofen and tizanidine as prescribed (per home med timings) # Type 2 [place]: Most likely her elevated troponin on admission was due to discrepancy between oxygen supply and demand #MBS show fidel aspiration with thin liquid. Nasal surveillance was positive for MRSA Patient is stable to be discharged home today to follow-up with her PCP and cashier clerk outpatient #Diet: Puree /Honey consistency Regular diet #DVT ppx: SQ Heparin #Code status: Full code Problem List: 1. UTI (urinary tract infection) 2. Paroxysmal A-fib 3. Afib Pain Ratin Pain Location: N/A Pain Goal: Remain pain free Pain Plan: PATHWAY Tomorrow's Labs & Rationales: N/A AdamAnamaria 06/24/17 1541: Attending MD Review Statement Attending Statement Attending MD Statement: examined this patient, discuss w/resident/PA/BAR ATTENDANT, agreed w/resident/PA/BAR ATTENDANT, reviewed EMR data (avail), discussed with nursing, discussed with case mgmt Attending Assessment/Plan: Pt got bolus overnight for low BP . Will dc her metoprolol. Appreciated cardiology input. pt will be dced to skilled nursing on Tuesday if her BP stays stable and she does ok over the weekend. dysphagia- cont on dysphagia diet with pureed diet and nectar thick liquids.
[2017-06-24 08:06] LABS: ABSOLUTE BASOPHIL COUNT 0.1 /CUMM (0.0-0.2); ABSOLUTE EOSINOPHIL COUNT 0.3 /CUMM (0.0-0.7); ABSOLUTE GRANULOCYTE CT 2.5 /CUMM (1.4-6.5); ABSOLUTE LYMPH COUNT 2.2 /CUMM (1.2-3.4); ABSOLUTE MONOCYTE COUNT 0.4 /CUMM (0.10-0.60); EOSINOPHIL % 5.1 % (0-5); GRANULOCYTE % 46.4 % (42.2-75.2); HEMATOCRIT 39.2 % (37-47); MEAN CORPUSCULAR HGB 30.4 PG (27.0-31.0); MEAN CORPUSCULAR HGB CONC 33.9 G/DL (33.0-37.0); MEAN CORPUSCULAR VOLUME 89.7 FL (81.0-99.0); MEAN PLATELET VOLUME 11.1 FL (7.4-10.4); PLATELET COUNT 154 /CUMM (130-400); RBC DISTRIBUTION WIDTH 13.2 % (11.5-14.5); RED BLOOD CELL CT 4.37 /CUMM (4.20-5.40); WHITE BLOOD CELL COUNT 5.4 /CUMM (4.8-10.8)
--- NOTE | 2017-06-24 10:59 | Patient Discharge Instructions ---
Discharge Instructions General Discharge Information You were seen/treated for: #New onset atrial fibrillation with rapid ventricular response, currently rate controlled #Urinary tract infection #Chronic muscle spasm Special Instructions: 1please follow-up with your PCP in 1 week of discharge 3please follow-up with your stamp pad finisher in 1 week of discharge Diet Continue normal diet: No Recommended Diet: puree with nectar thick liquids Activity Full Activity/No Limits: Yes Acute Coronary Syndrome Inclusion Criteria At DC or during hospital stay patient has or had the following: ACS DIAGNOSIS No Discharge Core Measures Meds if any: Prescribed or Continued at Discharge Meds if any: NOT Prescribed or Continued at Discharge Congestive Heart Failure Inclusion Criteria At DC or during hospital stay patient has or had the following: CHF DIAGNOSIS No Discharge Core Measures Meds if any: Prescribed or Continued at Discharge Meds if any: NOT Prescribed or Continued at Discharge Cerebrovascular accident Inclusion Criteria At DC or during hospital stay patient has or had the following: CVA/TIA Diagnosis No Discharge Core Measures Meds if any: Prescribed or Continued at Discharge Meds if any: NOT Prescribed or Continued at Discharge Venous thromboembolism Inclusion Criteria VTE Diagnosis No VTE Type NONE VTE Confirmed by (Test) NONE Discharge Core Measures - Per Current guidelines, there needs to be overlap - treatment for the first 5 days of Warfarin therapy. - If discharged on Warfarin prior to 5 days of - overlap therapy, the patient will need to be - assessed for post discharge needs including - *Post discharge parental anticoagulation - *Warfarin and/or parental anticoagulation education - *Follow up date to check INR post discharge At least 5 days overlap therapy as Inpatient No Meds if any: Prescribed or Continued at Discharge Note: Overlap Therapy is Warfarin and Anticoagulant Meds if any: NOT Prescribed or Continued at Discharge
--- NOTE | 2017-06-24 11:09 | PN- Cardiology ---
Subjective Subjective: Resting comfortably without complaint. Objective Vital Signs and I&Os Vital Signs Date Time Temp Pulse Resp B/P B/P Pulse O2 O2 Flow FiO2 Mean Ox Delivery Rate 06/24 0800 96 Nasal 2.0L Cannula 06/24 0630 97.5 48 22 112/73 98 06/24 0312 57 100/58 06/24 0122 56 98/63 06/24 0000 Nasal 2.0L Cannula 06/23 2300 97.4 67 20 88/55 96 06/23 1600 Nasal 2.0L Cannula 06/23 1438 98.6 58 18 110/70 98 Intake & Output 06/24 1600 06/24 0800 06/24 0000 06/23 1600 06/23 0800 06/23 0000 Intake Total 750 320 600 800 440 Output Total 150 350 650 100 200 Balance 600 -30 -50 700 240 Intake, IV 750 200 800 320 Intake, Oral 320 400 120 Number 2 Bowel Movements Output, Urine 150 350 650 100 200 Patient 217 lb 200 lb Weight Weight Bed scale Measurement Method Physical Exam: General: no apparent distress. Eyes: No obvious scleral icterus. HEENT: No jugular venous distention or abnormal jugular venous pulsations. Cardiovascular: Normal intensity S1/S2. Regular Respiratory: Lungs clear to auscultation Abdomen: Soft, nontender with no guarding or rebound tenderness. Musculoskeletal: No clubbing or cyanosis noted Skin: No obvious rashes or ulcerations. Current Medications: Current Medications Sig/Nya Start time Last Medication Dose Route Stop Time Status Admin Acetaminophen 1,000 MG Q6P PRN 06/21 1900 AC IV Ascorbic Acid 500 MG DAILY 06/22 1000 AC 06/24 PO 0957 Aspirin 81 MG DAILY 06/21 1929 AC 06/24 PO 0956 Baclofen 10 MG BID 06/21 2199 AC 06/24 PO 0956 Ceftriaxone Sodium 1,000 MG Q24H 06/24 2100 AC IV Ceftriaxone Sodium 1,000 MG Q24H 06/22 2200 DC 06/23 IV 2106 Cholecalciferol 2,000 IU DAILY 06/22 1000 AC 06/24 PO 0957 Duloxetine HCl 60 MG DAILY 06/22 1000 AC 06/24 PO 0957 Furosemide 20 MG DAILY 06/22 1000 DC 06/23 PO 0817 Heparin Sodium 5,000 UNIT Q8 06/21 2199 AC 06/24 (Porcine) SC 0512 Metoprolol Tartrate 12.5 MG BID 06/21 2199 DC 06/23 PO 0817 Multivitamins 1 TAB DAILY 06/22 1000 AC 06/24 Therapeutic PO 0957 Potassium Chloride 20 MEQ DAILY 06/22 1000 AC 06/24 PO 0957 Senna 187 MG AT BEDTIME 06/21 2199 AC 06/23 PO 210 Sodium Chloride 500 ML BOLUS ONE 06/24 0145 DC 06/24 IV 06/24 0244 0200 Sodium Chloride 250 ML BOLUS ONE 06/23 2300 DC 06/23 IV 06/23 2359 2253 Tizanidine HCl 4 MG 1200,06/22 1200 AC 06/23 PO 2106 Tizanidine HCl 4 MG 0000 PRN 06/22 1045 AC PO Trazodone HCl 100 MG QPM 06/21 2199 AC 06/23 PO 2106 Results Last 48 Hrs of Labs/Mics: Laboratory Tests 06/24/17 0624: Anion Gap 10, Estimated GFR > 60, BUN/Creatinine Ratio 11.7, CBC w Diff NO MAN DIFF REQ, RBC 4.37, MCV 89.7, MCH 30.4, MCHC 33.9, RDW 13.2, MPV 11.1 H, Gran % 46.4, Lymphocytes % 40.0, Monocytes % 7.5, Eosinophils % 5.1 H, Basophils % 1.0 , Absolute Granulocytes 2.5, Absolute Lymphocytes 2.2, Absolute Monocytes 0.4, Absolute Eosinophils 0.3, Absolute Basophils 0.1 06/23/17 0635: Anion Gap 10, Estimated GFR > 60, BUN/Creatinine Ratio 18.3, Magnesium 1.7, CBC w Diff NO MAN DIFF REQ, RBC 4.32, MCV 90.4, MCH 30.5, MCHC 33.7, RDW 13.5, MPV 11.4 H, Gran % 50.3, Lymphocytes % 37.0, Monocytes % 7.6, Eosinophils % 4.1, Basophils % 1.0, Absolute Granulocytes 2.7, Absolute Lymphocytes 2.0, Absolute Monocytes 0.4, Absolute Eosinophils 0.2, Absolute Basophils 0.1 Recent Imaging Studies: Telemetry tracings were personally reviewed and shows sinus rhythm with 8 beat ventricular run Assessment/Plan Assessment/Plan 1. Nausea/vomiting/diarrhea possibly due to viral gastroenteritis 2. New onset rapid atrial fibrillation with spontaneous conversion to sinus rhythm; likely precipitated by gastritis 3. Elevated troponin most likely due to supply/demand mismatch 4. History of bicuspid aortic valve 5. History of hypertension 6. History of Friedreich's ataxia 7. NSVT 1. Nausea/vomiting/diarrhea possibly due to viral gastroenteritis 2. New onset rapid atrial fibrillation with spontaneous conversion to sinus rhythm; likely precipitated by gastritis 3. Elevated troponin most likely due to supply/demand mismatch 4. History of bicuspid aortic valve 5. History of hypertension 6. History of Friedreich's ataxia 7. NSVT No regional wall motion abnormalities noted on echocardiogram. She continues to deny any chest pain or shortness of breath. Blood pressure now improved off metoprolol. No evidence of recurrent atrial fibrillation on telemetry. Would aim to keep the potassium above 4.0 and magnesium above 2.0. Continue on daily aspirin. Likely plan to rechallenge with low-dose beta-rai as an outpatient once blood pressure trend goes back to baseline. Recommend follow-up in our office within 1-2 weeks of discharge. Continue on daily aspirin. Matteo Mccall MD [facility] Continue telemetry? No
[2017-06-24 15:08] VITALS: BP 108/60
[2017-06-24 22:17] VITALS: BP 106/60
[2017-06-25 07:15] VITALS: BP 110/58
--- NOTE | 2017-06-25 08:25 | PN- Housestaff ---
Subjective Follow-up For: #New onset atrial fibrillation with rapid ventricular response, currently rate controlled #Urinary tract infection #Chronic muscle spasm Tele-Events Since Last Visit: Off telemetry Subjective: Patient was seen and examined at bedside site, afebrile, no overnight events. She finished a 3 day course of ceftriaxone for her UTI Review of Systems Constitutional: Reports: see HPI. Objective Last 24 Hrs of Vital Signs/I&O Vital Signs Date Time Temp Pulse Resp B/P B/P Pulse O2 O2 Flow FiO2 Mean Ox Delivery Rate 06/25 0715 98.2 67 18 110/58 94 Room Air 06/24 2217 97.8 58 16 106/60 93 Room Air 06/24 1508 97.3 60 20 108/60 94 Room Air Intake & Output 06/25 1600 06/25 0800 06/25 0000 Intake Total 110 320 Output Total 450 350 Balance -340 -30 Intake, IV 10 20 Intake, Oral 100 300 Output, Urine 450 350 Physical Exam General Appearance: Alert, Cooperative, No Acute Distress HEENT: Atraumatic, PERRLA, EOMI, Mucous Membr. moist/pink Cardiovascular: Normal S1, Normal S2 Lungs: Clear to Auscultation Abdomen: Normal Bowel Sounds Extremities: No Clubbing, No Cyanosis, No Edema Vascular: Normal Pulses Assessment/Plan Assessment: 51-year-old female with history of Friedreich's ataxia, traumatic brain injury, with residual muscle spasms hypertension, bicuspid aortic valve, previous gallstone pancreatitis, who lives in a [facility], was brought into the emergency department for complaints of nausea, vomiting, loose stools, 4 episodes for 1 day. She was last seen by her nurse on 06/20/2017 without any issues. She specifically denies any chest pain, palpitation, dizziness, shortness of breath, abdominal pain. She was transferred from ICU to telemetry for follow-up on #New onset atrial fibrillation with rapid ventricular response, currently rate controlled * The patient is already in sinus rhythm right * Patient was noticed to have increased responsE to metoprolol * Continue to hold metoprolol for now * Her echo represented poor window but normal overall systolic function, it may be difficult for her to do noninvasive testing was Catrina ataxia, can be done outpatient * Cardiology recommendation appreciated #History of hypertension: * Blood pressure was running low * Would hold Norvasc, Lasix, metoprolol #Urinary tract infection * urine culture from 0 06/21 was positive for E. coli and alpha strep burt sensitive * Finished a 3 day course of IV ceftriaxone * Maintain hydration #Muscle spasms, chronic * Continue home medications of baclofen and tizanidine as prescribed (per home med timings) # Type 2 [place]: Most likely her elevated troponin on admission was due to discrepancy between oxygen supply and demand #MBS show fidel aspiration with thin liquid. 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 UTI (urinary tract infection) 2. Elevated troponin 3. Paroxysmal A-fib 4. Nausea and vomiting Pain Ratin Pain Location: N/A Pain Goal: Remain pain free Pain Plan: PATHWAY Tomorrow's Labs & Rationales: N/A
--- NOTE | 2017-06-25 12:22 | PN- Att Addend ---
Attending Addendum Attending Brief Note Patient seen and examined. Plan of care discussed with the medical team and the patient. Available lab work and radiology test reports were reviewed. Patient awake alert and pleasant. She is able to answer questions. She denies any chest pain difficulty breathing or fever. Exam: General: Patient awake alert oriented without any distress CVS: S1 plus S2 without any murmur or gallops Chest: Few scattered crepitation without any wheeze. There is no respiratory distress. Abdomen: Soft non-tender, bowel sound present, no guarding or rebound [employer]: Awake alert and able to answer simple questions. She is bedbound Extremities: No edema; no clubbing or cyanosis noted Current Medications Sig/Nya Start time Last Medication Dose Route Stop Time Status Admin Acetaminophen 1,000 MG Q6P PRN 06/21 1900 AC IV Ascorbic Acid 500 MG DAILY 06/22 1000 AC 06/25 PO 1017 Aspirin 81 MG DAILY 06/21 1929 AC 06/25 PO 1017 Baclofen 10 MG BID 06/21 2200 AC 06/25 PO 1017 Ceftriaxone Sodium 1,000 MG Q24H 06/24 2100 DC 06/24 IV 2232 Cholecalciferol 2,000 IU DAILY 06/22 1000 AC 06/25 PO 1016 Duloxetine HCl 60 MG DAILY 06/22 1000 AC 06/25 PO 1017 Heparin Sodium 5,000 UNIT Q8 06/21 2200 AC 06/25 (Porcine) SC 0525 Multivitamins 1 TAB DAILY 06/22 1000 AC 06/25 Therapeutic PO 1017 Potassium Chloride 20 MEQ DAILY 06/22 1000 AC 06/25 PO 1019 Senna 187 MG AT BEDTIME 06/21 2200 AC 06/24 PO 2107 Simethicone 40 MG Q6P PRN 06/25 1115 AC 06/25 PO 1128 Tizanidine HCl 4 MG 1200,0 06/22 1200 AC 06/25 PO 1128 Tizanidine HCl 4 MG 0000 PRN 06/22 1045 AC PO Trazodone HCl 100 MG QPM 06/21 2200 AC 06/24 PO 2107 Laboratory Tests 06/24/17 0624: Anion Gap 10, Estimated GFR > 60, BUN/Creatinine Ratio 11.7, CBC w Diff NO MAN DIFF REQ, RBC 4.37, MCV 89.7, MCH 30.4, MCHC 33.9, RDW 13.2, MPV 11.1 H, Gran % 46.4, Lymphocytes % 40.0, Monocytes % 7.5, Eosinophils % 5.1 H, Basophils % 1.0 , Absolute Granulocytes 2.5, Absolute Lymphocytes 2.2, Absolute Monocytes 0.4, Absolute Eosinophils 0.3, Absolute Basophils 0.1 06/23/17 0635: Anion Gap 10, Estimated GFR > 60, BUN/Creatinine Ratio 18.3, Magnesium 1.7, CBC w Diff NO MAN DIFF REQ, RBC 4.32, MCV 90.4, MCH 30.5, MCHC 33.7, RDW 13.5, MPV 11.4 H, Gran % 50.3, Lymphocytes % 37.0, Monocytes % 7.6, Eosinophils % 4.1, Basophils % 1.0, Absolute Granulocytes 2.7, Absolute Lymphocytes 2.0, Absolute Monocytes 0.4, Absolute Eosinophils 0.2, Absolute Basophils 0.1 Vital Signs Date Time Temp Pulse Resp B/P B/P Pulse O2 O2 Flow FiO2 Mean Ox Delivery Rate 06/25 0715 98.2 67 18 110/58 94 Room Air 06/24 2217 97.8 58 16 106/60 93 Room Air 06/24 1508 97.3 60 20 108/60 94 Room Air Intake & Output 06/25 1600 06/25 0800 06/25 0000 Intake Total 110 320 Output Total 450 350 Balance -340 -30 Intake, IV 10 20 Intake, Oral 100 300 Output, Urine 450 350 Barium swallow study on June 23 showed fidel aspiration Assessment * New onset A. fib with RVR * History of hypertension * UTI of Escherichia coli currently on IV ceftriaxone * Chronic muscle spasms * Friedreich's ataxia, * traumatic brain injury, with residual muscle spasms * hypertension, * bicuspid aortic valve, * previous gallstone pancreatitis Plan * change of atenolol to oral Tylenol * Continue her cephalexin today with plan to switch to oral Keflex tomorrow based on culture reports * Possible discharge to penitentiary on Tuesday
[2017-06-25 16:06] VITALS: BP 112/60
[2017-06-25 20:00] VITALS: BP 110/60
[2017-06-26 06:07] VITALS: BP 136/86
--- NOTE | 2017-06-26 13:24 | PN- Att Addend ---
Attending Addendum Attending Brief Note Patient seen and examined. Plan of care discussed with the medical team and the patient. Available lab work and radiology test reports were reviewed. Patient awake alert and pleasant. She was transferred out of telemetry to general medical floor. She is able to answer questions. She denies any chest pain difficulty breathing or fever. No major change in clinical status. Exam: General: Patient awake alert oriented without any distress; she is bedbound CVS: S1 plus S2 without any murmur or gallops Chest: Few scattered crepitation without any wheeze. There is no respiratory distress. 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 She is bedbound Extremities: Slight edema of both feet but no clubbing or cyanosis noted Assessment * New onset A. fib with RVR * History of hypertension * UTI of Escherichia coli currently on IV ceftriaxone * Chronic muscle spasms * Friedreich's ataxia, * traumatic brain injury, with residual muscle spasms * hypertension, * bicuspid aortic valve, * previous gallstone pancreatitis Plan * Follow off antibiotics; patient status post treatment with 3 days of IV ceftriaxone * Possible discharge to intermediate on Tuesday * note that Barium swallow study on June 23 showed fidel aspiration; continue pured diet * DC IV Tylenol Current Medications Sig/Nya Start time Last Medication Dose Route Stop Time Status Admin Acetaminophen 1,000 MG Q6P PRN 06/21 1900 AC IV Ascorbic Acid 500 MG DAILY 06/22 1000 AC 06/26 PO 1303 Aspirin 81 MG DAILY 06/21 1929 AC 06/26 PO 1304 Baclofen 10 MG BID 06/21 2199 AC 06/26 PO 1304 Cholecalciferol 2,000 IU DAILY 06/22 1000 AC 06/26 PO 1303 Duloxetine HCl 60 MG DAILY 06/22 1000 AC 06/26 PO 1304 Heparin Sodium 5,000 UNIT Q8 06/21 2199 AC 06/26 (Porcine) SC 0543 Multivitamins 1 TAB DAILY 06/22 1000 AC 06/26 Therapeutic PO 1304 Potassium Chloride 20 MEQ DAILY 06/22 1000 AC 06/26 PO 1304 Senna 187 MG AT BEDTIME 06/21 2199 AC 06/25 PO 2123 Simethicone 40 MG Q6P PRN 06/25 1115 AC 06/25 PO 1128 Tizanidine HCl 4 MG 1200,06/22 1200 AC 06/26 PO 1304 Tizanidine HCl 4 MG 0000 PRN 06/22 1045 AC PO Trazodone HCl 100 MG QPM 06/21 2199 AC 06/25 PO 2123 Laboratory Tests 06/24/17 0624: Anion Gap 10, Estimated GFR > 60, BUN/Creatinine Ratio 11.7, CBC w Diff NO MAN DIFF REQ, RBC 4.37, MCV 89.7, MCH 30.4, MCHC 33.9, RDW 13.2, MPV 11.1 H, Gran % 46.4, Lymphocytes % 40.0, Monocytes % 7.5, Eosinophils % 5.1 H, Basophils % 1.0 , Absolute Granulocytes 2.5, Absolute Lymphocytes 2.2, Absolute Monocytes 0.4, Absolute Eosinophils 0.3, Absolute Basophils 0.1 Vital Signs Date Time Temp Pulse Resp B/P B/P Pulse O2 O2 Flow FiO2 Mean Ox Delivery Rate 06/26 0607 98.0 63 20 136/86 94 06/25 2000 97.9 70 20 110/60 96 Room Air 06/25 1606 97.6 70 18 112/60 93 Intake & Output 06/26 1600 06/26 0800 06/26 0000 Intake Total 120 680 Output Total 1000 550 Balance -880 130 Intake, Oral 120 680 Number 0 2 Bowel Movements Output, Urine 1000 550 Patient 216 lb Weight Weight Bed scale Measurement Method
[2017-06-26 21:45] VITALS: BP 132/86
[2017-06-27 06:23] VITALS: BP 124/82
--- NOTE | 2017-06-27 08:41 | PN- Housestaff ---
Adia ARZOLA,[facility] 06/27/17 0841: Subjective Follow-up For: New onset atrial fibrillation with rapid ventricular response, currently rate controlled Urinary tract infection Chronic muscle spasm Subjective: Patient was seen and examined at bedside. She reports doing well. Inquires about her d Review of Systems Constitutional: Reports: no symptoms. Objective Last 24 Hrs of Vital Signs/I&O Vital Signs Date Time Temp Pulse Resp B/P B/P Pulse O2 O2 Flow FiO2 Mean Ox Delivery Rate 06/27 0623 97.7 57 20 124/82 93 06/26 2145 98.1 65 20 132/86 95 Room Air Intake & Output 06/27 1600 06/27 0800 06/27 0000 Intake Total 240 240 Output Total 425 1000 Balance -185 -760 Intake, Oral 240 240 Number 1 Bowel Movements Output, Urine 425 1000 Physical Exam General Appearance: Alert, Cooperative, No Acute Distress Skin: No Rashes, No Breakdown Skin Temp/Moisture Exam: Warm/Dry Sepsis Skin Exam (color): Normal for Ethnicity HEENT: Atraumatic Cardiovascular: Normal S1, Normal S2, No Murmurs Lungs: Clear to Auscultation, Normal Air Movement Abdomen: Soft, No Tenderness Neurological: abnormal speech Extremities: No Edema Assessment/Plan Assessment: 51-year-old female with history of Friedreich's ataxia, traumatic brain injury, with residual muscle spasms hypertension, bicuspid aortic valve, previous gallstone pancreatitis, who lives in a assisted, was brought into the emergency department for complaints of nausea, vomiting, loose stools, 4 episodes for 1 day. She was last seen by her nurse on 06/20/2017 without any issues. She specifically denies any chest pain, palpitation, dizziness, shortness of breath, abdominal pain. Assessment and Plan: New onset atrial fibrillation with rapid ventricular response, currently rate controlled * The patient remains in sinus rhythm right * Metoprolol to be restarted as an outpatient. * Cardiology recommendation appreciated * started on baby aspirin. History of hypertension: * Blood pressure was running low previously. Her BP today is 124/82 * Would hold Norvasc, Lasix, metoprolol. Can be restarted once deemed appropriate by cardiology Urinary tract infection * urine culture from 06/21 was positive for E. coli and alpha strep burt sensitive * Finished a 3 day course of IV ceftriaxone #Muscle spasms, chronic * Continue home medications of baclofen and tizanidine as prescribed (per home med timings) Elevated Troponins: Most likely her elevated troponin on admission was due to discrepancy between oxygen supply and demand #MBS show fidel aspiration with thin liquid. 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 UTI (urinary tract infection) Pain Ratin Pain Location: none Pain Goal: Remain pain free Pain Plan: none Tomorrow's Labs & Rationales: none Ananda Irizarry 06/27/17 1304: Attending MD Review Statement Attending Statement Attending MD Statement: examined this patient, discuss w/resident/PA/RESIDENTIAL CONSTRUCTION INSTRUCTOR, agreed w/resident/PA/RESIDENTIAL CONSTRUCTION INSTRUCTOR, discussed with family, reviewed EMR data (avail), discussed with nursing, discussed with case mgmt, reviewed images, amended to note Attending Assessment/Plan: Patient without any new complaints. Vitals stable. Patient to be discharged to assisted as planned.
[2017-06-27] MEDS ORDERED: THICK-IT1 EACH AD ×2 (12:05→12:08)
[2017-06-27] MEDS ORDERED: ASPIRIN81 M4 PO (12:06)
[2017-06-27] MEDS ORDERED: THICK-IT1 EACH PO (12:09)
== END 2017-06-27 20:27 | disposition home health service (06) | DRG 309 ==
LOC: ERH 10:31 → CRI 17:09 → 1NO 17:09 → ERHI 17:09 → ENRESERV 18:37 → CRI 19:33 → ENTRNSPT 06-22 17:36 → EDTRNSPT 06-22 18:34 → EDTRNSPTSTS 06-22 18:34 → 1NO 06-22 18:48 → CMPTRNSPT 06-22 18:52 → 1NO 06-23 07:57 → ENTRNSPT 06-25 19:32 → EDTRNSPTSTS 06-25 19:42 → 2NB 06-25 19:52 → CMPTRNSPT 06-25 20:09 → 2NB 06-27 09:36 → ENPENDDIS 06-27 10:44 → 2NB 06-27 20:27
PROVIDERS: Emergency Medicine; Internal Medicine Interventional Cardiology; Physician Assistant; Student in an Organized Health Care Education/Training Program
DX: I48.0 Paroxysmal atrial fibrillation (principal); G71.0 Muscular dystrophy; E87.2 Acidosis; G11.1 Early-onset cerebellar ataxia; K86.1 Other chronic pancreatitis; G82.20 Paraplegia, unspecified; N39.0 Urinary tract infection, site not specified; R11.10 Vomiting, unspecified; A08.4 Viral intestinal infection, unspecified; Z87.820 Personal history of traumatic brain injury; Z87.442 Personal history of urinary calculi; I10 Essential (primary) hypertension; K52.9 Noninfective gastroenteritis and colitis, unspecified; R79.89 Other specified abnormal findings of blood chemistry; B96.20 Unspecified Escherichia coli [E. coli] as the cause of diseases classified elsewhere; Z74.01 Bed confinement status; R25.2 Cramp and spasm; B95.62 Methicillin resistant Staphylococcus aureus infection as the cause of diseases classified elsewhere
CPT/HCPCS: 1NP; 1NSP; 2NBP; CCU; 36415; 36592; 71045; 74177; 74230; 81001; 81025; 82436; 87040; 87045; 87086; 87088; 87147; 93005; 93010; 93306; 99291; J0696; J1644; J3490; J7040

== ENCOUNTER 2017-11-18 14:34 | Emergency (ER) | payer OTHER, MEDICARE ==
[~2017-11-18] VITALS: Ht 167.6 cm; Wt 93.4 kg
[~2017-11-18 14:34] MED LIST changes: +ASPIRIN81 M4 PO; +CRANBERRY200 MG PO; +DAILY MULTIPLE1 EACH PO; +SENOKOT8.6 M2 PO; +THICK-IT1 EACH AD; +THICK-IT1 EACH PO; +VITAMIN C500 M6 PO; +VITAMIN D32000 UNI1 PO
[2017-11-18 15:15] LABS: ABSOLUTE BASOPHIL COUNT 0 /CUMM (0.0-0.2); ABSOLUTE EOSINOPHIL COUNT 0.1 /CUMM (0.0-0.7); ABSOLUTE GRANULOCYTE CT 1.9 /CUMM (1.4-6.5); ABSOLUTE LYMPH COUNT 1.3 /CUMM (1.2-3.4); ABSOLUTE MONOCYTE COUNT 0.7 /CUMM (0.10-0.60); BASOPHIL % 0.9 % (0.0-2.0); EOSINOPHIL % 2.7 % (0-5); GRANULOCYTE % 47.2 % (42.2-75.2); HEMATOCRIT 48.2 % (37-47); MEAN CORPUSCULAR HGB 30.9 PG (27.0-31.0); MEAN CORPUSCULAR HGB CONC 34.5 G/DL (33.0-37.0); MEAN CORPUSCULAR VOLUME 89.5 FL (81.0-99.0); MEAN PLATELET VOLUME 10.1 FL (7.4-10.4); PLATELET COUNT 169 /CUMM (130-400); RBC DISTRIBUTION WIDTH 13.2 % (11.5-14.5); RED BLOOD CELL CT 5.39 /CUMM (4.20-5.40)
--- NOTE | 2017-11-18 15:40 | RADIOLOGY REPORT ---
EXAMINATION: XR PORTABLE CHEST CLINICAL INFORMATION: Shortness of breath. COMPARISON: 06/21/2017. TECHNIQUE: Portable frontal view of the chest was obtained. FINDINGS: Limited by body habitus and rotation. The cardiomediastinal silhouette is stable. There is prominence of the ascending aortic shadow. Stable elevation of the left hemidiaphragm. Mild bibasilar atelectasis. No consolidation or effusion. No pneumothorax. IMPRESSION: Limited exam. No acute cardiac pulmonary findings.
--- NOTE | 2017-11-18 16:21 | ED DYSPNEA/ASTHMA COMPLAINT ---
See Addendum History of Present Illness General Chief Complaint: Dyspnea (COPD, CHF, Other) Stated Complaint: BIBA WITH PROBLEM BREATHING Source: patient, CAREGIVER Exam Limitations: no limitations Vital Signs & Intake/Output Vital Signs & Intake/Output Vital Signs Date Time Temp Pulse Resp B/P B/P Pulse O2 O2 Flow FiO2 Mean Ox Delivery Rate 11/18 1722 94 11/18 1639 97.8 68 20 135/77 91 Room Air 11/18 1548 93 Nasal 2.0L Cannula 11/18 1454 95 Room Air 11/18 1454 97.7 64 18 122/66 95 Room Air Allergies Coded Allergies: NO KNOWN ALLERGIES (10/21/11) Reconcile Medications Ascorbate Calcium (Vitamin C) 500 MG TABLET 1 TAB PO DAILY VITAMIN SUPPORT ( Reported) Aspirin (Aspirin*) 81 MG TAB.CHEW 81 MG PO DAILY BLOOD THINNER Baclofen 10 MG TABLET 1 TAB PO BID SPASM (Reported) Cholecalciferol (Vitamin D3) (Vitamin D3) 2,000 UNIT TABLET 1 TAB PO DAILY VITAMIN SUPPORT (Reported) Cranberry Extract (Cranberry) (Unknown Strength) CAPSULE (Unknown Dose) PO BID SUPPLEMENT (Reported) Duloxetine HCl (Cymbalta) 60 MG CAPSULE.DR 1 CAP PO DAILY DEPRESSION ( Reported) Multivitamin (Daily Multiple Vitamin) 1 EACH TABLET 1 TAB PO DAILY VITAMIN SUPPORT (Reported) Potassium Chloride (K-Tab ER) 20 MEQ TABLET.ER 1 TAB PO DAILY SUPPLEMENT ( Reported) Sennosides (Senokot) 8.6 MG TABLET 1 TAB PO QPM CONSTIPATION (Reported) Starch (Thick-It) 1 EACH POWD.PACK 1 PAC PO DAILY Thickener Slowly add Thick-It Thickener to the liquid while stirring briskly with a spoon, fork or whisk until thickener has dissolved. Tizanidine HCl (Zanaflex) 4 MG CAPSULE 1 CAP PO BID SPASMS (Reported) Trazodone HCl 100 MG TABLET 1 TAB PO QPM SLEEP (Reported) Triage Note: 52 Y/O FEMALE FANI FROM [facility] FOR EVAL OF SOB. PT WITH HX TBI. PER EMS, STAFF WAS CONCERNED ABOUT HER BREATHING SO CALLED 911. ARRIVES TO ED WITH RA SAT 95%. PT AND STAFF CONFIRM PT HAS BEEN COUGHING WITH CLEAR PHLEGM. REPORT GOOD APPETITE/PO INTAKE. DENIES FEVERS. AWAITING EVAL Triage Nurses Notes Reviewed? yes Onset: Abrupt Duration: day(s): (1-2) Timing: single episode today Severity: mild, moderate Activities at Onset: none Prior Episodes/Possible Cause: no prior episodes Associated Symptoms: cough LMP (ages 10-50): unknown : No Patient currently breastfeeds: No HPI: 52-year-old female history of kidney stones and muscular dystrophy who is non- ambulatory at baseline brought in by aunt frannie for evaluation of difficulty breathing and cough. Patient's caregiver reports that patient has been having a nonproductive cough for the past 2 or 3 days. Today she reported some shortness of breath. 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 Patient has no history of smoking asthma or COPD. She denies chest pain hemoptysis recent surgery lower extremity edema or fever. No nasal congestion. She's never been prescribed an inhaler. No secondhand smoke. She is eating and drinking normally. Her mental status at baseline. (Kale Orozco) Past History Travel History Traveled to [place] past 21 day No Medical History Any Pertinent Medical History? 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 No (Kale Orozco) Review of Systems Review of Systems Constitutional: Reports: no symptoms. EENTM: Reports: no symptoms. Respiratory: Reports: see HPI, cough, short of breath, sputum production, wheezing. Cardiovascular: Reports: no symptoms. GI: Reports: no symptoms. Genitourinary: Reports: no symptoms. Musculoskeletal: Reports: no symptoms. Skin: Reports: no symptoms. Neurological/Psychological: Reports: no symptoms. Hematologic/Endocrine: Reports: no symptoms. Immunologic/Allergic: Reports: no symptoms. All Other Systems: Reviewed and Negative (Kale Orozco) Physical Exam Physical Exam General Appearance: well developed/nourished, no apparent distress, alert, awake Head: atraumatic, normal appearance Eyes: Bilateral: normal appearance, PERRL, EOMI. Ears, Nose, Throat: hearing grossly normal Neck: normal inspection, supple, full range of motion Respiratory: no respiratory distress, wheezing Cardiovascular: regular rate/rhythm, normal peripheral pulses Peripheral Pulses: 2+ radial (R), 2+ radial (L) Gastrointestinal: normal bowel sounds, soft, non-tender, no organomegaly Extremities: normal inspection, normal range of motion (UPPER EXTRENITES), no edema Neurologic/Psych: no motor/sensory deficits, awake, alert, oriented x 3 Skin: intact, normal color, warm/dry Lymphatic: no anterior cervical isabela Core Measures ACS in differential dx? Yes CVA/TIA Diagnosis No Sepsis Present: No Sepsis Focused Exam Completed? No (Kale Orozco) Progress Differential Diagnosis: asthma, AMI, bronchitis, CHF, COPD, musculoskeletal pain , pulmonary embolism, pneumonia, pneumothorax, rib fracture, unstable angina Plan of Care: Orders Procedure Date/time Status TROPONIN LEVEL 11/18 1810 Active EKG 11/[address] CHEST WO IV CONTRAST 11/18 1710 Active Add-on Test (ER Only) 11/18 1625 Active TROPONIN LEVEL 11/18 1510 Complete D-DIMER 11/18 1510 Complete COMPREHENSIVE METABOLIC PANEL 11/18 1455 Complete CBC WITHOUT DIFFERENTIAL 11/18 1455 Complete EKG 11/18 1437 Active Laboratory Tests 11/18/17 1510: Anion Gap 7, Estimated GFR > 60, BUN/Creatinine Ratio 25.0, Glucose 110 H, Calcium 8.9, Total Bilirubin 0.5, AST 28, ALT 26, Alkaline Phosphatase 72, Troponin I 0.06, Total Protein 6.9, Albumin 3.7, Globulin 3.2, Albumin/Globulin Ratio 1.2, D-Dimer High Sensitivty < 200, CBC w Diff NO MAN DIFF REQ, RBC 5.39, MCV 89.5, MCH 30.9, MCHC 34.5, RDW 13.2, MPV 10.1, Gran % 47.2, Lymphocytes % 31.8, Monocytes % 17.4 H, Eosinophils % 2.7, Basophils % 0.9, Absolute Granulocytes 1.9, Absolute Lymphocytes 1.3, Absolute Monocytes 0.7 H, Absolute Eosinophils 0.1, Absolute Basophils 0 Patient is here for evaluation of shortness of breath and cough. On exam she has diffuse wheezing. No respiratory distress. Her initial oxygen saturation is 95% she denies any where from 91-97 on room air. She has no history of COPD or asthma she does not smoke. She has no chest pain. Patient is medicated with Solu-Medrol and DuoNeb. Labs chest x-ray ordered. Blood work overalls within normal limits. D-dimer is negative. Initial troponin is negative. EKG shows diffuse T wave inversions that are similar to previous but do appear more severe. Patient has no chest pain. A repeat EKG and troponin will be obtained. Patient's oxygen saturation has been as low as 91% at rest on room air. Chest x-ray was clear but was poor quality. CT scan of the chest was ordered without contrast for further evaluation. Patient signed out to Dr. Armen LEBLANC PENDING CT AND REPEAT LABS EKG. Diagnostic Imaging: Viewed by Me: Radiology Read, CT Scan. Discussed w/RAD: Radiology Read, CT Scan. Radiology Impression: PATIENT: FLORINA RANDALL PRESENT AGE: 52 PATIENT ACCOUNT NO: [id number] : 67 LOCATION: [facility] ORDERING PHYSICIAN: Kale DOYLE SERVICE DATE: 11/18/17 EXAM TYPE: RAD - XRY- PORTABLE CHEST XRAY EXAMINATION: XR PORTABLE CHEST CLINICAL INFORMATION: Shortness of breath. COMPARISON: 06/21/2017. TECHNIQUE: Portable frontal view of the chest was obtained. FINDINGS: Limited by body habitus and rotation. The cardiomediastinal silhouette is stable. There is prominence of the ascending aortic shadow. Stable elevation of the left hemidiaphragm. Mild bibasilar atelectasis. No consolidation or effusion. No pneumothorax. IMPRESSION: Limited exam. No acute cardiac pulmonary findings. DICTATED BY: Fady Agrawal MD DATE/ TIME DICTATED:11/18/171534 STAVE HEWER:BERT DATE/TIME TRANSCRIBED: 11/18/171534 CONFIDENTIAL, DO NOT COPY WITHOUT APPROPRIATE AUTHORIZATION. < Electronically signed in Other Vendor System> SIGNED BY: Fady Agrawal MD 11/18/17 4858 Initial ED EKG: normal sinus rhythm, dIFFUSE t-WAVE INVERSIONS Hand-Off Endorsed To: Armen Leblanc MD Endorsed Time: 180 Pending: CT, EKG, labs (Kale Orozco) Departure Departure Disposition: STILL A PATIENT Condition: Stable Clinical Impression Primary Impression: Bronchitis Referrals: Anitha Gage MD (PCP/Family) Departure Forms: Customer Survey General Discharge Information (Kale Orozco) PA/[employer]IT[employer] Co-Sign Statement Statement: ED Attending supervision documentation- [] I saw and evaluated the patient. I have also reviewed all the pertinent lab results and diagnostic results. I agree with the findings and the plan of care as documented in the PA's/GLAZIER [employer] FURNIT[employer]'s documentation. [X] I have reviewed the ED Record and agree with the PA's/GLAZIER [employer]IT[employer]'s documentation. [] Additions or exceptions (if any) to the PAs/GLAZIER [employer] FURNITURE's note and plan are summarized below: [] Resident Co-Sign Statement Statement: ED Attending supervision documentation- [] I saw and evaluated the patient. I have also reviewed all the pertinent lab results and diagnostic results. I agree with the findings and the plan of care as documented in the Resident's documentation. [X] I have reviewed the ED Record and agree with the Resident's documentation. [] Additions or exceptions (if any) to the Resident's note and plan are summarized below: [] (Brayden ARZOLA,Lazarus Short) Critical Care Note Critical Care Note Critical Care Time: non-applicable (Kale Orozco)
--- NOTE | 2017-11-18 18:53 | CT SCAN REPORT ---
EXAMINATION: CT CHEST WITHOUT CONTRAST CLINICAL INFORMATION: Shortness of breath. Hypoxia. COMPARISON: CT of chest 06/21/2017. CT abdomen and pelvis 02/25/2014. TECHNIQUE: Multidetector volumetric CT imaging of the chest was done. Axial MIP volume rendering provided. Sagittal and coronal reformatted images were obtained. DLP: 556.43 mGy-cm FINDINGS: LUNGS: There is asymmetric elevation of the left diaphragm compared to the right. There is focal consolidation above the left diaphragm posteriorly with air bronchogram in the left lower lobe. This was also present on the CAT scan of 06/21/2017 but the area of consolidation, atelectasis, is increased on today's study. There is chronic consolidation due to the elevated diaphragm at this lung base. This was present on the CAT scan of 02/25/2014 as well. The right lung is clear. The central bronchial airways are open. There is no bronchiectasis. MEDIASTINUM: There are small subcentimeter lymph nodes but there is no bulky lymphadenopathy in the mediastinum. The ascending aorta is dilated to a diameter of 4.3 cm. PLEURA: There is no pleural effusion. No pleural mass or thickening. AXILLA: No lymphadenopathy. UPPER ABDOMEN: There are tiny radiolucencies in the lumen of the gallbladder consistent with small stones. No edema around the gallbladder. The visualized portions of the liver, spleen, pancreas and adrenal glands are normal. There is a 1 mm nonobstructive stone in the midpole of the right kidney. No hydronephrosis of the kidneys. OSSEOUS STRUCTURES: There is a dextroscoliosis of the thoracolumbar spine with multilevel disc height narrowing and endplate spurring of the vertebrae. IMPRESSION: 1. Focal consolidation/atelectasis at the posterior left lung base. Elevation of left diaphragm. The airspace opacity at the left lung base has worsened since the prior CAT scan of 06/21/2017. This area of lung consolidation though is chronic, was present on the CAT scan of 02/25/2014 as well. 2. Dilatation of the ascending aorta to 4.3 cm transverse. 3. Cholelithiasis.
[2017-11-18] MEDS ORDERED: PREDNISONE50 M1 PO (19:21)
[2017-11-18] MEDS ORDERED: AZITHROMYCIN250 M1 PO (19:21)
[2017-11-18 19:48] VITALS: BP 160/78
== END 2017-11-18 20:10 | disposition still patient (30) ==
LOC: ERH 14:34
PROVIDERS: Physician Assistant Medical
DX: J40 Bronchitis, not specified as acute or chronic (principal); R05 Cough; R06.02 Shortness of breath
CPT/HCPCS: 1263; 71045; 93005; 93010; 96374; J0456; J2930